=== PATIENT | female | born 1945 | race Caucasian/White ===

== ENCOUNTER → 2017-01-07 | Outpatient (CLI) | payer MEDICARE ==
--- NOTE | 2017-01-08 07:57 | MM ---
Reason for exam: screening (asymptomatic). Last mammogram was performed 2 years and 9 months ago. History: Patient is postmenopausal. Benign core biopsy of the left breast, 2001. Benign core biopsy of the left breast, 2000. Benign cyst aspiration of the left breast, May 04, 1998. Physical Findings: A clinical breast exam by your physician is recommended on an annual basis and results should be correlated with mammographic findings. MG 3D Screening Mammo W/Cad Bilateral CC and MLO view(s) were taken. Prior study comparison: April 03, 2014, bilateral MG screening mammo w CAD. June 26, 2011, bilateral digital screening mammo w/CAD. There are scattered fibroglandular densities. Finding: There are typically benign vascular, round calcifications in both breasts. There is no discrete abnormality. ASSESSMENT: Benign, BI-RAD 2 RECOMMENDATION: Routine screening mammogram of both breasts in 1 year.
== END | disposition home or self-care (01) ==
LOC: RADMAMWWP 07:25
PROVIDERS: ATTEND Family Medicine
DX: Z12.31 Encounter for screening mammogram for malignant neoplasm of breast (principal)
CPT/HCPCS: 77063; G0202

== ENCOUNTER → 2021-03-20 | Outpatient (CLI) | payer MEDICARE ==
--- NOTE | 2021-03-20 08:32 | BD ---
EXAMINATION TYPE: Axial Bone Density DATE OF EXAM: 03/20/2021 COMPARISON: 05/29/2010 CLINICAL HISTORY: Height: 64.2 IN Weight: 210 LBS FRAX RISK QUESTIONS: History of Fracture in Adulthood: RT ANKLE FX AGE 61 Secondary Osteoporosis: 3. Menopause before 45: PARTIAL HYST AGE 26 RISK FACTORS HISTORY OF: Active: YES Postmenopausal woman: PARTIAL HYST AGE 26 Take estrogen and/or progesterone medications: NOT NOW How long: TOOK CONTROL FOR 15 YEARS MEDICATIONS: Thyroid Medications: YES Which medication: Synthroid How Lon+ YEARS Additional Medications: CALCIUM, VIT D, SYNTHROID, LIPITOR, EXAM MEASUREMENTS: Bone mineral densitometry was performed using the [employer] System. Bone mineral density as measured about the Lumbar spine is: ----- L1-L4(G/cm2): 1.117 T Score Values are as follows: ----- L2: -1.7 ----- L3: 0.2 ----- L4: 0.9 ----- L1-L4: -0.5 Bone mineral density has: Increased 13.8% since study of: 05/29/2010 Bone mineral density about the R hip (g/cm2): 0.819 Bone mineral density about the L hip (g/cm2): 0.879 T Score values are as follows: -----R Neck: -1.6 -----L Neck: -1.2 -----R Total: -1.3 -----L Total: -1.1 Bone mineral density has: Decreased -3.7% since study of: 05/29/2010 IMPRESSION: Osteopenia NOTE: T-SCORE=SD OF THE YOUNG ADULT MEAN.
--- NOTE | 2021-03-21 12:21 | MM ---
Reason for exam: screening (asymptomatic). Last mammogram was performed 4 years and 2 months ago. History: Patient is postmenopausal. Benign core biopsy of the left breast, 2001. Benign core biopsy of the left breast, 2000. Benign cyst aspiration of the left breast, May 04, 1998. Took hormonal contraceptives for 15 years. Physical Findings: A clinical breast exam by your physician is recommended on an annual basis and results should be correlated with mammographic findings. MG 3D Screening Mammo W/Cad Bilateral CC and MLO view(s) were taken. Prior study comparison: January 07, 2017, bilateral MG 3d screening mammo w/cad. April 03, 2014, bilateral MG screening mammo w CAD. There are scattered fibroglandular densities. Stable benign calcifications. There is no discrete abnormality. No significant changes when compared with prior studies. ASSESSMENT: Benign, BI-RAD 2 RECOMMENDATION: Routine screening mammogram of both breasts in 1 year.
== END | disposition home or self-care (01) ==
LOC: RADMAMWWP 07:00
PROVIDERS: ATTEND Family Medicine
DX: Z12.31 Encounter for screening mammogram for malignant neoplasm of breast (principal); Z78.0 Asymptomatic menopausal state; M85.80 Other specified disorders of bone density and structure, unspecified site
CPT/HCPCS: 77063; 77067; 77080

== ENCOUNTER 2022-05-29 06:07 | Inpatient (IN) | payer MEDICARE ==
[2022-05-29] MEDS ORDERED: PANTOPRAZOLE 40 MG/10 ML VIAL IVP STA (06:09)
[2022-05-29] MEDS ORDERED: SODIUM CHLORIDE 0.9% 1,000 ML IV STA (06:34)
[2022-05-29] MEDS ORDERED: ONDANSETRON 4 MG/2 ML VIAL IVP STA (06:34)
[2022-05-29] MEDS ORDERED: MORPHINE SULFATE 2 MG/ML SYRINGE IVP STA (06:59)
--- NOTE | 2022-05-29 07:11 | ED ---
Female Urogenital HPI - General Chief complaint: Urogenital Stated complaint: Urogenital, vomiting Time Seen by Provider: 05/29/22 06:09 Source: patient, family, RN notes reviewed Mode of arrival: ambulatory Limitations: no limitations - History of Present Illness Initial comments: This is a 76-year-old female who presents to the emergency department for nausea, vomiting, and urinary hesitancy. States that she woke up early this morning with pain in the right flank area with associated nausea and vomiting. Right flank pain wraps around into the abdomen. For the last couple of days, she's had burning with urination and urinary hesitancy. She's had 3 urinary tract infections since March, her most recent one was less than a month ago. Unsure which antibiotic she was treated with. Overall states that she feels very ill. Denies any history of kidney stones. Denies any fevers, chills, sore throat, cough, dyspnea, chest pain, p alpitations, diarrhea, back pain, or headaches. MD Complaint: dysuria Onset/Timin -: days(s) Location: other (right flank) Radiation: RLQ - Related Data Home Medications Medication Instructions Recorded Confirmed Atorvastatin Calcium 20 mg PO QAM 05/29/22 05/29/22 Levothyroxine Sodium [Synthroid] 50 mcg PO QAM 05/29/22 05/29/22 Meclizine [Antivert] 25 mg PO BID PRN 05/29/22 05/29/22 Allergies Allergy/AdvReac Type Severity Reaction Status Date / Time Latex, Natural Rubber Allergy Unknown Verified 05/29/22 13:08 Sulfa (Sulfonamide Allergy Unknown Verified 05/29/22 13:08 Antibiotics) sulfur Allergy Unknown Uncoded 05/29/22 06:22 Review of Systems ROS Statement: Those systems with pertinent positive or pertinent negative responses have been documented in the HPI. ROS Other: All systems not noted in ROS Statement are negative. Past Medical History Past Medical History: Hyperlipidemia, Thyroid Disorder History of Any Multi-Drug Resistant Organisms: None Reported Past Surgical History: Hysterectomy, Orthopedic Surgery Past Psychological History: No Psychological Hx Reported Smoking Status: Former smoker Past Alcohol Use History: None Reported Past Drug Use History: None Reported General Exam Limitations: no limitations General appearance: alert, in distress Head exam: Present: atraumatic, normocephalic, normal inspection Respiratory exam: Present: normal lung sounds bilaterally. Absent: respiratory distress, wheezes, rales, rhonchi, stridor Cardiovascular Exam: Present: regular rate, normal rhythm, normal heart sounds. Absent: systolic murmur, diastolic murmur, rubs, gallop, clicks GI/Abdominal exam: Present: soft, tenderness (RLQ), normal bowel sounds. Absent: distended, guarding, rebound, rigid Neurological exam: Present: alert, oriented X3, CN II-XII intact Psychiatric exam: Present: normal affect, normal mood Skin exam: Present: warm, dry, intact, normal color. Absent: rash Course Vital Signs 05/29/22 05/29/22 05/29/22 06:23 06:36 13:23 Temperature 97.8 F 98.2 F Pulse Rate 79 79 67 Respiratory 16 18 18 Rate Blood Pressure 151/82 169/79 151/73 O2 Sat by Pulse 96 96 97 Oximetry Medical Decision Making - Medical Decision Making This is a 76-year-old female who presents to the emergency department with nausea, vomiting, and right flank pain. Lab work reveals leukocytosis. Urinalysis is possibly suggestive of an infection but also consistent with contamination. Computed tomography scan of the abdomen and pelvis obtained revealing an 18 mm calculus in the right renal pelvis with moderate sized hydronephrosis. There is an additional proximal moderate hydroureter and a 5 mm calculus in the distal right ureter before the UVJ. She was given normal saline, Toradol, morphine, and Zofran. She only had symptomatic improvement for 30 minutes to 1 hour. She subsequently required a dose of Dilaudid followed by Reglan. Patient's pain improved slightly, however she is still very uncomfortable. Overall states that she feels very ill and is not comfortable going home due to her level of pain and inability to urinate. Dr. Hunt, urology, is agreeable to the admission and managing the patient on an inpatient basis. Patient will be admitted to medicine with urology consult for further management. This case was discussed in detail with the attending ED physician. Presentation, findings, and treatment plan discussed in detail as well. - Lab Data Result diagrams: 05/29/22 07:11 05/29/22 07:11 Lab Results 05/29/22 05/29/22 05/29/22 Range/Units 07:11 07:11 07:11 WBC 10.8 H (3.8-10.6) k/uL RBC 4.52 (3.80-5.40) m/uL Hgb 13.8 (11.4-16.0) gm/dL Hct 40.8 (34.0-46.0) % MCV 90.4 (80.0-100.0) fL MCH 30.5 (25.0-35.0) pg MCHC 33.7 (31.0-37.0) g/dL RDW 13.0 (11.5-15.5) % Plt Count 273 (150-450) k/uL MPV 7.9 Neutrophils % 79 % Lymphocytes % 14 % Monocytes % 5 % Eosinophils % 1 % Basophils % 0 % Neutrophils # 8.5 H (1.3-7.7) k/uL Lymphocytes # 1.5 (1.0-4.8) k/uL Monocytes # 0.5 (0-1.0) k/uL Eosinophils # 0.1 (0-0.7) k/uL Basophils # 0.0 (0-0.2) k/uL Sodium 136 L (137-145) mmol/L Potassium 4.2 (3.5-5.1) mmol/L Chloride 105 (98-107) mmol/L Carbon Dioxide 20 L (22-30) mmol/L Anion Gap 11 mmol/L BUN 12 (7-17) mg/dL Creatinine 0.80 (0.52-1.04) mg/dL Est GFR (CKD-EPI)AfAm 83 (>60 ml/min/1.73 sqM) Est GFR (CKD-EPI)NonAf 72 (>60 ml/min/1.73 sqM) Glucose 135 H (74-99) mg/dL Calcium 8.9 (8.4-10.2) mg/dL Total Bilirubin 0.6 (0.2-1.3) mg/dL AST 24 (14-36) U/L ALT 19 (4-34) U/L Alkaline Phosphatase 107 (38-126) U/L Total Protein 6.9 (6.3-8.2) g/dL Albumin 4.1 (3.5-5.0) g/dL Amylase 67 (30-110) U/L Lipase 100 (23-300) U/L Urine Color Yellow Urine Appearance Turbid H (Clear) Urine pH 5.0 (5.0-8.0) Ur Specific [place] 1.025 (1.001-1.035) Urine Protein 1+ H (Negative) Urine Glucose (UA) Negative (Negative) Urine Ketones Negative (Negative) Urine Blood Negative (Negative) Urine Nitrite Negative (Negative) Urine Bilirubin Negative (Negative) Urine Urobilinogen <2.0 (<2.0) mg/dL Ur Leukocyte Esterase Large H (Negative) Ur Squamous Epith Cells 18 H (0-4) /hpf Calcium Oxalate Crystal Many H (None) /hpf Urine Bacteria Occasional H (None) /hpf Urine Mucus Many H (None) /hpf - Radiology Data Radiology results: report reviewed, image reviewed Disposition Clinical Impression: Hydronephrosis with renal and ureteral calculus obstruction Disposition: ADMITTED IP TO THIS HOSP
[2022-05-29 07:24] LABS: Basophils % (A) 0 %; Eosinophils # (A) 0.1 k/uL (0-0.7); Eosinophils % (A) 1 %; HCT 40.8 % (34.0-46.0); HGB 13.8 gm/dL (11.4-16.0); Lymphocytes # (A) 1.5 k/uL (1.0-4.8); Lymphocytes % (A) 14 %; MCH 30.5 pg (25.0-35.0); MCHC 33.7 g/dL (31.0-37.0); MCV 90.4 fL (80.0-100.0); Mean Platelet Volume 7.9; Monocytes # (A) 0.5 k/uL (0-1.0); Monocytes % (A) 5 %; Neutrophils # (A) 8.5 k/uL (1.3-7.7); Neutrophils % (A) 79 %; Platelet Count 273 k/uL (150-450); RBC 4.52 m/uL (3.80-5.40); WBC 10.8 k/uL (3.8-10.6)
[2022-05-29 07:38] LABS: Albumin 4.1 g/dL (3.5-5.0); Calcium 8.9 mg/dL (8.4-10.2); Potassium 4.2 mmol/L (3.5-5.1); Total Bilirubin 0.6 mg/dL (0.2-1.3); Total Protein 6.9 g/dL (6.3-8.2)
--- NOTE | 2022-05-29 07:49 | CT ---
EXAMINATION TYPE: CT abdomen pelvis wo con DATE OF EXAM: 05/29/2022 HISTORY: Rt flank pain, frequent UTIs, vomiting CT DLP: 1042.4 mGycm. Automated Exposure Control for Dose Reduction was Utilized. TECHNIQUE: CT scan of the abdomen and pelvis is performed without oral or IV contrast. COMPARISON: NONE FINDINGS: Within the limitations of a non-contrast study, the following observations are made. LUNG BASES: Elevated right hemidiaphragm. Coronary artery calcification is present. LIVER/GB: No significant abnormality is appreciated. PANCREAS: No significant abnormality is seen. SPLEEN: No significant abnormality is seen. ADRENALS: No significant abnormality is seen. KIDNEYS: No left-sided nephrolithiasis or hydronephrosis. Moderate right-sided hydronephrosis with 18 mm calculus in right renal pelvis on coronal image 56. There is additional proximal moderate hydrour eter with horizontal course proximal to mid segment than mild to moderate mid to distal hydroureter d ue to obstructing 5 mm calculus just before right UVJ axial image 146. No intraluminal calculi in the poorly distended bladder. BOWEL: Small to moderate size hiatal hernia. Normal-appearing appendix from base of cecum. No suspici ous small or large bowel dilatation. GENITAL ORGANS: Uterus surgically absent or markedly atrophic. Occasional scattered tiny pelvic phleb olith is seen bilaterally. LYMPH NODES: No greater than 1cm abdominal or pelvic lymph nodes are appreciated. OSSEOUS STRUCTURES: Slight scoliotic curvature in the spine. Multilevel facet arthropathy in the mid to lower lumbar spine. OTHER: No significant additional abnormality is seen. IMPRESSION: There is 5 mm calculus distal right ureter right before UVJ causing [id number] righ t-sided hydronephrosis. Note is made of additional 18 mm calculus in the right renal pelvis.
[2022-05-29 08:23] LABS: Appearance,Urine Turbid (Clear); Bacteria,Urine Occasional /hpf; Bilirubin,Urine Negative (Negative); Blood,Urine Negative (Negative); Calcium Oxalate Crystals,Urine Many /hpf; Color,Urine Yellow; Glucose,Urine (UA) Negative (Negative); Ketones,Urine Negative (Negative); Leukocyte Esterase,Urine Large (Negative); Mucus,Urine Many /hpf; Nitrite,Urine Negative (Negative); Protein,Urine 1+ (Negative); Specific Gravity,Urine 1.025 (1.001-1.035); Squamous Epithelial Cell,Urine 18 /hpf (0-4); Urobilinogen,Urine <2.0 mg/dL (<2.0)
[2022-05-29] MEDS ORDERED: METOCLOPRAMIDE 5 MG/ML 2 ML VIAL IVP STA (08:47)
[2022-05-29] MEDS ORDERED: HYDROmorphone 0.5 MG/0.5 ML SYRINGE IVP STA ×2 (08:47→10:04)
[2022-05-29] MEDS ORDERED: NALOXONE 0.4 MG/ML 1 ML VIAL IV PRN (13:19)
[2022-05-29] MEDS ORDERED: HYDROmorphone 1 MG/ML 1 ML SYRINGE IVP PRN (13:19)
[2022-05-29] MEDS ORDERED: KETOROLAC 15 MG/ML 1 ML VIAL IVP PRN (13:19)
[2022-05-29] MEDS ORDERED: ACETAMINOPHEN TAB 325 MG TAB PO PRN (13:19)
[2022-05-29] MEDS ORDERED: SODIUM CHLORIDE 0.9% 1,000 ML IV SCH (13:30)
--- NOTE | 2022-05-29 15:14 | P.GSCN ---
History of Present Illness Consult date: 05/29/22 Reason for Consult: Renal and ureteral calculus with hydronephrosis and hydroureter Requesting physician: Lizbeth Williamson History of present illness: This is a 76-year-old female who presents to the emergency department for nausea, vomiting, and urinary hesitancy. States that she woke up early this morning with pain in the right flank area with associated nausea and vomiting. Right flank pain wraps around into the abdomen. For the last couple of days, she's had burning with urination and urinary hesitancy. She's had 3 urinary tract infections since March, her most recent one was less than a month ago. Unsure which antibiotic she was treated with. Overall states that she feels very ill. Denies any history of kidney stones. Abdomen/pelvis CT show 5mm calculus to distal right ureter right before the UVVJ causing moderate right sided hydronephrosis. An additional 18mm calculus is seen in the right renal pelvis. Review of Systems - Constitutional Denies chills, Denies fever - Cardiovascular Denies chest pain - Respiratory Denies cough - Gastrointestinal Reports nausea, Reports vomiting - Genitourinary Genitourinary: Reports dysuria, Reports flank pain, Reports urinary frequency, Denies hematuria Past Medical History Past Medical History: Hyperlipidemia, Thyroid Disorder History of Any Multi-Drug Resistant Organisms: None Reported Past Surgical History: Hysterectomy, Orthopedic Surgery Past Psychological History: No Psychological Hx Reported Smoking Status: Former smoker Past Alcohol Use History: None Reported Past Drug Use History: None Reported Medications and Allergies Home Medications Medication Instructions Recorded Confirmed Type Atorvastatin Calcium 20 mg PO QAM 05/29/22 05/29/22 History Levothyroxine Sodium [Synthroid] 50 mcg PO QAM 05/29/22 05/29/22 History Meclizine [Antivert] 25 mg PO BID PRN 05/29/22 05/29/22 History Allergies Allergy/AdvReac Type Severity Reaction Status Date / Time Latex, Natural Rubber Allergy Unknown Verified 05/29/22 13:08 Sulfa (Sulfonamide Allergy Unknown Verified 05/29/22 13:08 Antibiotics) sulfur Allergy Unknown Uncoded 05/29/22 06:22 Surgical - Exam Vital Signs Temp Pulse Resp BP Pulse Ox 97.8 F 79 16 151/82 96 05/29/22 06:23 05/29/22 06:23 05/29/22 06:23 05/29/22 06:23 05/29/22 06:23 - General well developed, well nourished, moderate pain - Respiratory normal expansion, normal respiratory effort - Abdomen Abdomen: soft, non tender - Integumentary no rash - Psychiatric oriented to time, oriented to person, oriented to place, speech is normal Results - Labs 05/30/22 06:44 05/30/22 06:44 Abnormal Lab Results - Last 24 Hours (Table) 05/29/22 05/29/22 05/29/22 Range/Units 07:11 07:11 07:11 WBC 10.8 H (3.8-10.6) k/uL Neutrophils # 8.5 H (1.3-7.7) k/uL Sodium 136 L (137-145) mmol/L Carbon Dioxide 20 L (22-30) mmol/L Glucose 135 H (74-99) mg/dL Urine Appearance Turbid H (Clear) Urine Protein 1+ H (Negative) Ur Leukocyte Esterase Large H (Negative) Ur Squamous Epith Cells 18 H (0-4) /hpf Calcium Oxalate Crystal Many H (None) /hpf Urine Bacteria Occasional H (None) /hpf Urine Mucus Many H (None) /hpf Diabetes panel 05/29/22 Range/Units 07:11 Sodium 136 L (137-145) mmol/L Potassium 4.2 (3.5-5.1) mmol/L Chloride 105 (98-107) mmol/L Carbon Dioxide 20 L (22-30) mmol/L BUN 12 (7-17) mg/dL Creatinine 0.80 (0.52-1.04) mg/dL Glucose 135 H (74-99) mg/dL Calcium 8.9 (8.4-10.2) mg/dL AST 24 (14-36) U/L ALT 19 (4-34) U/L Alkaline Phosphatase 107 (38-126) U/L Total Protein 6.9 (6.3-8.2) g/dL Albumin 4.1 (3.5-5.0) g/dL Calcium panel 05/29/22 Range/Units 07:11 Calcium 8.9 (8.4-10.2) mg/dL Albumin 4.1 (3.5-5.0) g/dL Pituitary panel 05/29/22 Range/Units 07:11 Sodium 136 L (137-145) mmol/L Potassium 4.2 (3.5-5.1) mmol/L Chloride 105 (98-107) mmol/L Carbon Dioxide 20 L (22-30) mmol/L BUN 12 (7-17) mg/dL Creatinine 0.80 (0.52-1.04) mg/dL Glucose 135 H (74-99) mg/dL Calcium 8.9 (8.4-10.2) mg/dL Adrenal panel 05/29/22 Range/Units 07:11 Sodium 136 L (137-145) mmol/L Potassium 4.2 (3.5-5.1) mmol/L Chloride 105 (98-107) mmol/L Carbon Dioxide 20 L (22-30) mmol/L BUN 12 (7-17) mg/dL Creatinine 0.80 (0.52-1.04) mg/dL Glucose 135 H (74-99) mg/dL Calcium 8.9 (8.4-10.2) mg/dL Total Bilirubin 0.6 (0.2-1.3) mg/dL AST 24 (14-36) U/L ALT 19 (4-34) U/L Alkaline Phosphatase 107 (38-126) U/L Total Protein 6.9 (6.3-8.2) g/dL Albumin 4.1 (3.5-5.0) g/dL - Imaging CT scan - abdomen: report reviewed CT scan - pelvis: report reviewed Assessment and Plan Assessment: The patient is in moderate discomfort. Patient has right flank pain that radiates to her abdomen. No left flank pain. She states she feels as if she is unable to empty her bladder. RN stated she bladder scanned patient for 72ml. No burning with urination. Denies any hematuria. WBC 10.8, patient afebrile. + UA could be contamination. (1) Hydronephrosis with renal and ureteral calculus obstruction Current Visit: Yes Status: Acute Code(s): N13.2 - HYDRONEPHROSIS WITH RENAL AND URETERAL CALCULOUS OBSTRUCTION SNOMED Code(s): 656991455 Plan: - Pain management with Dilaudid and Toradol - Manage nausea with Zofran or Reglan - Hydrate patient with IVF - Clear liquid diet - Urine culture - Cipro - Will need PCNL at later date Impression and plan of care have been directed as dictated by the signing physician. Maya Menard nurse practitioner acting as scribe for signing physician. Maya Menard [facility] Palliative Care/Urology Spectralink [id number] Email: [email or web address] This patient has been examined and the x-rays reviewed by myself. The patient has a distal ureteral stone on the right that is probably causing the pain as well as a large stone right in the renal pelvis. Options of treatment have been discussed. We will plan with a right ureteroscopy and laser lithotripsy primarily to the distal stone and then eventually a percutaneous nephrostolithotomy to the proximal stone Time with Patient: Greater than 30
[2022-05-29] MEDS: METOCLOPRAMIDE 5 MG/ML 2 ML VIAL IVP SCH (17:03)
[2022-05-29] MEDS: ONDANSETRON 4 MG/2 ML VIAL IVP PRN (18:02)
[2022-05-29] MEDS: DEXTROSE 5%-0.9% NACL 1,000 ML IV SCH (18:11)
[2022-05-29] MEDS: CIPROFLOXACIN HCL 500 MG TAB PO SCH (21:27)
[2022-05-29] MEDS: HYDROmorphone 0.5 MG/0.5 ML SYRINGE IVP PRN (21:27)
[2022-05-30] MEDS: METOCLOPRAMIDE 5 MG/ML 2 ML VIAL IVP SCH ×4 (01:00→18:35)
[2022-05-30] MEDS: ONDANSETRON 4 MG/2 ML VIAL IVP PRN ×4 (01:00→22:29)
[2022-05-30] MEDS: LEVOTHYROXINE 50 MCG TAB PO SCH (06:33)
[2022-05-30] MEDS: HYDROmorphone 0.5 MG/0.5 ML SYRINGE IVP PRN (06:34)
[2022-05-30 07:00] LABS: Basophils % (A) 0 %; Eosinophils # (A) 0.2 k/uL (0-0.7); Eosinophils % (A) 2 %; HCT 35.2 % (34.0-46.0); HGB 11.8 gm/dL (11.4-16.0); Lymphocytes # (A) 1.8 k/uL (1.0-4.8); Lymphocytes % (A) 27 %; MCH 31.2 pg (25.0-35.0); MCHC 33.6 g/dL (31.0-37.0); Mean Platelet Volume 7.3; Monocytes # (A) 0.6 k/uL (0-1.0); Monocytes % (A) 8 %; Neutrophils % (A) 61 %; Platelet Count 245 k/uL (150-450); RBC 3.79 m/uL (3.80-5.40); RDW 12.7 % (11.5-15.5); WBC 6.7 k/uL (3.8-10.6)
[2022-05-30 07:09] LABS: ALT 15 U/L (4-34); AST 20 U/L (14-36); African American GFR (CKD) 61 (>60 ml/min/1.73 sqM); Albumin 3.2 g/dL (3.5-5.0); Albumin/Globulin Ratio 1.3; Alkaline Phosphatase 82 U/L (38-126); Anion Gap 4 mmol/L; Blood Urea Nitrogen 14 mg/dL (7-17); Calcium 8.1 mg/dL (8.4-10.2); Carbon Dioxide 26 mmol/L (22-30); Chloride 106 mmol/L (98-107); Globulin 2.4 g/dL; Glucose 105 mg/dL (74-99); Magnesium 1.8 mg/dL (1.6-2.3); Non-African American GFR(CKD) 53 (>60 ml/min/1.73 sqM); Potassium 4.1 mmol/L (3.5-5.1); Sodium 136 mmol/L (137-145); Total Bilirubin 0.6 mg/dL (0.2-1.3); Total Protein 5.6 g/dL (6.3-8.2)
--- NOTE | 2022-05-30 07:45 | P.PN ---
Subjective Progress Note Date: 05/30/22 The patient is in the hospital with obstructing distal right ureteral stone with colic. She persisted with colic over the night. I discussed with the patient options of treatment. Because of the persistent colic on the right she wishes the stone to be removed. I will do a right ureteroscopy laser lithotripsy to the distal ureteral stone today. She may need a stent. This far as a renal pelvic stone this will be dealt with at a later date. She is on antibiotics possible infection however this is probably a contaminated urine based on the large amount of squamous epithelial cells in the urine, a normal white count and no fever. We'll proceed with this procedure today. Objective - Vital Signs Vital signs: Vital Signs Temp 98.8 F 05/30/22 01:32 Pulse 59 L 05/30/22 01:32 Resp 16 05/30/22 01:32 BP 119/57 05/30/22 01:32 Pulse Ox 95 05/30/22 01:32 FiO2 Intake & Output 05/29/22 05/30/22 05/30/22 18:59 06:59 18:59 Intake Total 400 Balance 400 Weight 99.79 kg Intake: Intake, IV Titration 400 Amount Dextrose 5%-0.9% NaCl 1, 100 000 ml @ 75 mls/hr IV . [id number] [facility] Rx#:[id number] Sodium Chloride 0.9% 1, 300 000 ml @ 75 mls/hr IV . [id number] [facility] Rx#:[id number] Other: Voiding Method Toilet # Voids 1 - Labs CBC & Chem 7: 05/30/22 06:44 05/30/22 06:44 Labs: Abnormal Lab Results - Last 24 Hours (Table) 05/29/22 05/30/22 05/30/22 Range/Units 07:11 06:44 06:44 RBC 3.79 L (3.80-5.40) m/uL Sodium 136 L (137-145) mmol/L Glucose 105 H (74-99) mg/dL Calcium 8.1 L (8.4-10.2) mg/dL Total Protein 5.6 L (6.3-8.2) g/dL Albumin 3.2 L (3.5-5.0) g/dL Urine Appearance Turbid H (Clear) Urine Protein 1+ H (Negative) Ur Leukocyte Esterase Large H (Negative) Ur Squamous Epith Cells 18 H (0-4) /hpf Calcium Oxalate Crystal Many H (None) /hpf Urine Bacteria Occasional H (None) /hpf Urine Mucus Many H (None) /hpf Microbiology - Last 24 Hours (Table) 05/29/22 19:45 Urine Culture - Preliminary Urine,Clean Catch Assessment and Plan (1) Hydronephrosis with renal and ureteral calculus obstruction Current Visit: Yes Status: Acute Code(s): N13.2 - HYDRONEPHROSIS WITH RENAL AND URETERAL CALCULOUS OBSTRUCTION SNOMED Code(s): 665633391
[2022-05-30] MEDS: DEXTROSE 5%-0.9% NACL 1,000 ML IV SCH ×2 (07:51→18:28)
[2022-05-30] MEDS: CIPROFLOXACIN HCL 500 MG TAB PO SCH ×3 (09:44→22:29)
[2022-05-30] MEDS: ATORVASTATIN 20 MG TAB PO SCH ×2 (09:44→09:47)
[2022-05-30] MEDS: PANTOPRAZOLE 40 MG/10 ML VIAL IVP SCH (11:49)
--- NOTE | 2022-05-30 12:13 | P.HPIM ---
History of Present Illness H&P Date: 05/30/22 Chief Complaint: Right flank pain, nausea vomiting History and Physical and Discharge Summary : This is a pleasant 76-year-old female with past medical history of hyperlipidemia, hypothyroidism, former nicotine dependence, obesity presented to the ER with complaints of right flank pain, urinary dysuria, nausea vomiting worsening over the last 2 days. Denies prior history of kidney stones. Reports recurrent UTIs since March most recent one last month, treated with antibiotics outpatient. CT of abdomen and pelvis reported 5 mm calculus of the distal right ureter right before the UVJ causing mild to moderate right-sided hydronephrosis, additional 18 mm calculus in the right renal pelvis. UA reported occasional bacteria, many calcium oxalate crystals, 18 squamous epithelial cells, large leukocyte esterase, negative nitrates .Afebrile, and ABC 10.8 on admission, currently within normal limits. Maintained on antiemetics, IV fluid hydration,Cipro and pain management. Review of Systems ROS Statement: Those systems with pertinent positive or pertinent negative responses have been documented in the HPI. ROS Other: All systems not noted in ROS Statement are negative. Past Medical History Past Medical History: Hyperlipidemia, Thyroid Disorder History of Any Multi-Drug Resistant Organisms: None Reported Past Surgical History: Hysterectomy, Orthopedic Surgery Past Psychological History: No Psychological Hx Reported Smoking Status: Former smoker Past Alcohol Use History: None Reported Past Drug Use History: None Reported - Past Family History Mother History Unknown: Yes Medications and Allergies Home Medications Medication Instructions Recorded Confirmed Type Atorvastatin Calcium 20 mg PO QAM 05/29/22 05/29/22 History Levothyroxine Sodium [Synthroid] 50 mcg PO QAM 05/29/22 05/29/22 History Meclizine [Antivert] 25 mg PO BID PRN 05/29/22 05/29/22 History Allergies Allergy/AdvReac Type Severity Reaction Status Date / Time Latex, Natural Rubber Allergy Unknown Verified 05/29/22 13:08 Sulfa (Sulfonamide Allergy Unknown Verified 05/29/22 13:08 Antibiotics) sulfur Allergy Unknown Uncoded 05/29/22 06:22 Physical Exam Vitals: Vital Signs Temp Pulse Pulse Resp BP BP Pulse Ox 05/30/22 08:27 98.2 F 64 16 125/74 94 L 05/30/22 01:32 98.8 F 59 L 16 119/57 95 05/29/22 18:40 66 18 05/29/22 16:22 98.1 F 66 18 148/75 95 05/29/22 16:07 97.2 F L 62 18 151/73 98 05/29/22 13:23 67 18 151/73 97 Intake and Output 05/29/22 05/30/22 05/30/22 22:59 06:59 14:59 Intake Total 400 Balance 400 Intake: Intake, IV Titration 400 Amount Dextrose 5%-0.9% NaCl 1, 100 000 ml @ 75 mls/hr IV . [id number] DAVE Rx#:[id number] Sodium Chloride 0.9% 1, 300 000 ml @ 75 mls/hr IV . [id number] DAVE Rx#:[id number] Other: Voiding Method Toilet Toilet # Voids 1 3 Weight 99.79 kg PHYSICAL EXAM: VITAL SIGNS: [As above] GENERAL: Sitting up in bed, no acute distress HEENT: Conjunctivae normal. eyes normal. NECK: No JVD. No thyroid enlargement. No LNs CARDIOVASCULAR: S1, S2 regular.. No murmur RESPIRATION: Breath sounds diminished in the bases. No rhonchi or crackles. No bronchial breathing. ABDOMEN: Soft, right flank tenderness, No guarding. no masses palpable. Bowel sounds heard. LEGS: No edema. no swelling PSYCHIATRY: Alert and oriented X3, mood and affect normal. NERVOUS SYSTEM: Cranial N 2-12 grossly normal. No focal deficits. Strength and sensation grossly intact. Skin: Warm and dry,, no rash Results CBC & Chem 7: 05/30/22 06:44 05/30/22 06:44 Labs: Abnormal Lab Results - Last 24 Hours (Table) 05/30/22 05/30/22 Range/Units 06:44 06:44 RBC 3.79 L (3.80-5.40) m/uL Sodium 136 L (137-145) mmol/L Glucose 105 H (74-99) mg/dL Calcium 8.1 L (8.4-10.2) mg/dL Total Protein 5.6 L (6.3-8.2) g/dL Albumin 3.2 L (3.5-5.0) g/dL Microbiology - Last 24 Hours (Table) 05/29/22 19:45 Urine Culture - Preliminary Urine,Clean Catch Thrombosis Risk Factor Assmnt - Choose All That Apply Any of the Below Risk Factors Present?: Yes Each Factor Represents 1 point: Obesity (BMI >25) Other Risk Factors: Yes Each Risk Factor Represents 3 Points: Age 75 years or older Thrombosis Risk Factor Assessment Total Risk Factor Score: 4 Thrombosis Risk Factor Assessment Level: Moderate Risk Assessment and Plan Assessment: Right ureteral calculus obstruction with a right-sided hydronephrosis Right renal pelvis, 18 mm calculus Obesity, BMI 35.5 Hyperlipidemia Hypothyroidism Former nicotine dependence Plan: Continue on current medication regime ,monitoring and symptomatic treatment. Antiemetics and pain management. IV fluid hydration. Antibiotics in place as per urology. Right ureteroscopy lithotripsy to the distal ureteral stone today with potential stent placement /PCNL at later date as per urology. Patient may be discharged home later today in stable condition with guarded prognosis, after urology procedure, pending final DC recommendations as antibiotics and clearance per urology. Discharge Medication List Atorvastatin Calcium 20 mg PO QAM 05/29/22 [History] Levothyroxine Sodium [Synthroid] 50 mcg PO QAM 05/29/22 [History] Meclizine [Antivert] 25 mg PO BID PRN 05/29/22 [History] The impression and plan of care has been dictated as directed. : I performed a history and examination of this patient, discussed the same with the dictator. I agree with the dictator's note ,documented as a scribe. Any additional findings or plans will be noted.
[2022-05-30] MEDS ORDERED: IV FLUID CONTINUATION 1,000 ML IV ONE (15:49)
[2022-05-30] MEDS ORDERED: MIDAZOLAM 2 MG/2 ML VIAL IV ONE (16:22)
[2022-05-30] MEDS ORDERED: LIDOCAINE 2% INJ 20 MG/ML (2 ML VIAL) ONE (16:48)
[2022-05-30] MEDS ORDERED: SUCCINYLCHOLINE CHLORIDE 200 MG/10 ML VIAL IV ONE (16:48)
[2022-05-30] MEDS ORDERED: fentaNYL (PF) 50 MCG/ML 2 ML AMP ONE (16:48)
[2022-05-30] MEDS ORDERED: PROPOFOL 10 MG/ML 20 ML VIAL IV ONE (16:48)
[2022-05-30] MEDS ORDERED: LACTATED RINGERS 1,000 ML IV ONE (17:02)
--- NOTE | 2022-05-30 17:30 | P.OP ---
Date of Procedure: 05/30/22 Preoperative Diagnosis: Right renal and ureteral stone Postoperative Diagnosis: Same Procedure(s) Performed: Cystoscopy, right ureteroscopy with laser lithotripsy, placement of 6 x 24 stent Anesthesia: JOSH Surgeon: Haris Hunt Estimated Blood Loss (ml): 0 Pathology: other (Stone) Condition: stable Disposition: PACU Indications for Procedure: Patient is 76. She is admitted with an 18 mm UPJ stone and a 4-5 mm distal ureteral stone. Ureteral stone as what caused obstruction and pain. She comes for right ureteroscopy and laser lithotripsy Description of Procedure: Patient brought to the operative suite. Given general anesthesia. Placed in lithotomy position with sterile prep and drape. Cystoscopy identifies a cystocele. Urethra is normal. The bladder mucosa is unremarkable. The right ureteral orifice is edematous the left is normal. I passed the semirigid ureteroscope to the right ureteral orifice and passed an 035 wire up the ureter. I then pass a semirigid scope over the wire to the right ureteral stone. Through a separate port a tendon 75 probe was placed and the stone broken into tiny fragments. There flushed out of the ureter. Because of the 18 mm UPJ stone a double-J catheter was replaced. I removed the ureteroscope. Over the wire is then passed a 6 x 24 double-J catheter that coils in the right renal pelvis and in the bladder. The bladder strain the patient is awakened and returned recovery room good condition. She'll be returned to her room and discharged home the next 24 hours. She'll follow-up in the office in one week. She'll need a percutaneous nephrostolithotomy for the large right renal pelvic stone.
--- NOTE | 2022-05-30 17:44 | FL ---
Intraoperative/procedural fluoroscopic services were provided. Total fluoroscopy time is 6 seconds wi th a total of 1 submitted images to PACS. Please see the operative/procedural note for further detail s.
[2022-05-31] MEDS: METOCLOPRAMIDE 5 MG/ML 2 ML VIAL IVP SCH ×2 (00:25→09:29)
[2022-05-31] MEDS: LEVOTHYROXINE 50 MCG TAB PO SCH (09:29)
[2022-05-31 09:40] VITALS: BP 123/63; PULSE 56; RESP 18; TEMP 98.5
--- NOTE | 2022-05-31 09:43 | P.PN ---
Subjective Progress Note Date: 05/31/22 the patient underwent right ureteroscopy with laser lithotripsy yesterday. I also placed a stent. I removed the distal ureteral stone that she has an 18 mm UPJ stone that will need to be dealt with with a percutaneous nephrostolithotomy and a secondary sitting. This is been discussed with the patient. From urologic standpoint she can be discharged home. Objective - Vital Signs Vital signs: Vital Signs Temp 98.5 F 05/31/22 08:00 Pulse 56 L 05/31/22 08:00 Resp 18 05/31/22 08:00 BP 123/63 05/31/22 08:00 Pulse Ox 93 L 05/31/22 08:00 FiO2 Intake & Output 05/30/22 05/31/22 05/31/22 18:59 06:59 18:59 Intake Total 400 Output Total 150 Balance 250 Weight 99.79 kg Intake: IV 400 Output: Urine 150 Estimated Blood Loss 0 Other: Voiding Method Toilet Toilet # Voids 3 - Labs CBC & Chem 7: 05/30/22 06:44 05/30/22 06:44 Labs: Microbiology - Last 24 Hours (Table) 05/29/22 19:45 Urine Culture - Final Urine,Clean Catch Assessment and Plan (1) Hydronephrosis with renal and ureteral calculus obstruction Current Visit: Yes Status: Acute Code(s): N13.2 - HYDRONEPHROSIS WITH RENAL AND URETERAL CALCULOUS OBSTRUCTION SNOMED Code(s): 509500194
[2022-05-31] MEDS: DEXTROSE 5%-0.9% NACL 1,000 ML IV SCH (09:47)
[2022-05-31] MEDS: CIPROFLOXACIN HCL 500 MG TAB PO SCH (09:48)
[2022-05-31] MEDS: ATORVASTATIN 20 MG TAB PO SCH (09:48)
[2022-05-31] MEDS: PANTOPRAZOLE 40 MG/10 ML VIAL IVP SCH (09:48)
--- NOTE | 2022-05-31 11:58 | P.DS ---
Providers Date of admission: 05/29/22 13:19 Expected date of discharge: 05/31/22 Attending physician: Balaji Barillas Consults: 05/29/22 13:19 Consult Physician Urgent Consulting Provider: Haris Hunt Consult Reason/Comments: Renal and ureteral calculus with hydronephrosis and hydroureter Do you want consulting provider notified?: Already Contacted Primary care physician: Balaji Barillas [place] [facility] Course: This is a pleasant 76-year-old female with past medical history of hyperlipidemia, hypothyroidism, former nicotine dependence, obesity presented to the ER with complaints of right flank pain, urinary dysuria, nausea vomiting worsening over the last 2 days. Denies prior history of kidney stones. Reports recurrent UTIs since March most recent one last month, treated with antibiotics outpatient. CT of abdomen and pelvis reported 5 mm calculus of the distal right ureter right before the UVJ causing mild to moderate right-sided hydronephrosis, additional 18 mm calculus in the right renal pelvis. UA reported occasional bacteria, many calcium oxalate crystals, 18 squamous epithelial cells, large leukocyte esterase, negative nitrates .Afebrile, and ABC 10.8 on admission, currently within normal limits. Maintained on antiemetics, IV fluid hydration,Cipro and pain management. 05/31/2022: patient underwent right ureteroscopy with laser lithotripsy yesterda y with urology. she is feeling much better. thery have cleared her and she will f/u with them regarding remaining stone in the office. Patient Condition at Discharge: Fair Plan - Discharge Summary Discharge Rx Participant: No New Discharge Prescriptions: Continue Levothyroxine Sodium [Synthroid] 50 mcg PO QAM Atorvastatin Calcium 20 mg PO QAM Meclizine [Antivert] 25 mg PO BID PRN PRN Reason: Vertigo Discharge Medication List Atorvastatin Calcium 20 mg PO QAM 05/29/22 [History] Levothyroxine Sodium [Synthroid] 50 mcg PO QAM 05/29/22 [History] Meclizine [Antivert] 25 mg PO BID PRN 05/29/22 [History] Follow up Appointment(s)/Referral(s): Blaaji Barillas MD [Primary Care Provider] - 3 Days Haris Hunt MD [STAFF PHYSICIAN] - 1 Week Patient Instructions/Handouts: Ureteral Stones (DC), Ureteral Stent Placement (DC)
== END 2022-05-31 10:20 | disposition home or self-care (01) | DRG 661 ==
LOC: EC 06:07 → 4SSUR 13:19
PROVIDERS: ADMIT Family Medicine; ATTEND Family Medicine
PROC: 0T768DZ Dilation of Right Ureter with Intraluminal Device, Via Natural or Artificial Opening Endoscopic (ICD-10-PCS; principal; 2022-05-30 10:40)
PROC: 0TC68ZZ Extirpation of Matter from Right Ureter, Via Natural or Artificial Opening Endoscopic (ICD-10-PCS; 2022-05-30 10:40)
PROC: 0T9B30Z Drainage of Bladder with Drainage Device, Percutaneous Approach (ICD-10-PCS; 2022-05-30 10:40)
DX: N13.2 Hydronephrosis with renal and ureteral calculous obstruction (principal); D72.829 Elevated white blood cell count, unspecified; E03.9 Hypothyroidism, unspecified; E66.9 Obesity, unspecified; E78.5 Hyperlipidemia, unspecified; Z68.35 Body mass index [BMI] 35.0-35.9, adult; Z79.890 Hormone replacement therapy; Z87.440 Personal history of urinary (tract) infections; Z87.891 Personal history of nicotine dependence; Z90.710 Acquired absence of both cervix and uterus; Z88.2 Allergy status to sulfonamides; Z91.040 Latex allergy status; Z91.048 Other nonmedicinal substance allergy status
CPT/HCPCS: 36415; 74176; 80053; 81001; 82150; 82365; 83690; 83735; 85025; 87086; 96361; 96374; 96375; 96376; 99284

== ENCOUNTER → 2022-06-16 | Outpatient (CLI) | payer MEDICARE ==
[2022-06-16 18:55] LABS: African American GFR (CKD) 77.4 (60.0-200.0); Anion Gap 8.8 mmol/L (10.00-18.00); BUN/Creat Ratio 14.47 Ratio (12.00-20.00); Blood Urea Nitrogen 12.2 mg/dL (9.0-27.0); Calcium 9.7 mg/dL (8.7-10.3); Carbon Dioxide 29.6 mmol/L (20.0-27.5); Non-African American GFR(CKD) 66.8 (60.0-200.0); Potassium 4.5 mmol/L (3.5-5.5)
[2022-06-16 18:56] LABS: Basophils # (A) 0.05 X 10*3/uL (0.00-0.10); Basophils % (A) 0.8 %; Eosinophils # (A) 0.16 X 10*3/uL (0.04-0.35); Eosinophils % (A) 2.4 %; HCT 41.7 % (37.2-46.3); HGB 13.3 g/dL (12.0-15.0); Immature Grans, Automated 0.3 %; Lymphocytes # (A) 1.94 X 10*3/uL (0.90-5.00); Lymphocytes % (A) 29.3 %; MCH 28.8 pg (27.0-32.0); MCHC 31.9 g/dL (32.0-37.0); MCV 90.3 fL (80.0-97.0); Mean Platelet Volume 9.3 fL (9.5-12.2); Monocytes # (A) 0.71 X 10*3/uL (0.20-1.00); Monocytes % (A) 10.7 %; NRBC Per 100 WBC 0 /100 WBCS (0.0-0.0); Neutrophils # (A) 3.74 X 10*3/uL (1.80-7.70); Neutrophils % (A) 56.5 %; Platelet Count 398 X 10*3/uL (140-440); RBC 4.62 X 10*6/uL (4.10-5.20); RDW 13.2 % (11.5-14.5); WBC 6.62 X 10*3/uL (4.50-10.00)
[2022-06-16 19:09] LABS: Appearance,Urine Clear (Clear); Bilirubin,Urine Negative (Negative); Blood,Urine Large (Negative); Color,Urine Yellow (Yellow); Ketones,Urine Negative (Negative); Nitrite,Urine Positive (Negative); Specific Gravity,Urine 1.009 (1.001-1.030); Urobilinogen,Urine 0.2 (0.2,1.0)
[2022-06-16 20:18] LABS: Bacteria,Urine Trace /HPF (None Seen)
== END | disposition home or self-care (01) ==
LOC: LABPAT 11:45
PROVIDERS: ATTEND Urology
DX: Z01.812 Encounter for preprocedural laboratory examination (principal); N20.0 Calculus of kidney; R31.29 Other microscopic hematuria
CPT/HCPCS: 80048; 81001; 85025; 87086

== ENCOUNTER 2022-06-26 08:41 | Day surgery (SDC) | payer MEDICARE ==
[~2022-06-26 08:41] MED LIST: AMPICILLIN 1,000 MG in SODIUM CHLORIDE 0.9% 50 ML IVPB PRN; GENTAMICIN 110 MG in SODIUM CHLORIDE 0.9% 100 ML IVPB PRN
--- NOTE | 2022-06-26 09:22 | XR ---
EXAMINATION TYPE: XR KUB DATE OF EXAM: 06/26/2022 Comparison: Correlation CT 05/30/2022 Clinical History: 77-year-old female preoperative exam, N20.0 Right renal stone Findings: Right-sided ureteral stent is present. There is a 2.1 cm stone at the right kidney. Multiple pelvic p hleboliths are present. Mild degenerative spurring of both hips. Nonobstructive bowel gas pattern. Impression: A 2.1 cm right renal calculus. This appears to be within the collecting system on the patient's recen t CT. Right ureteral stent in place. Pelvic phleboliths.
[2022-06-26] MEDS ORDERED: LACTATED RINGERS 1,000 ML IV ONE ×2 (09:24→11:47)
[2022-06-26] MEDS ORDERED: ONDANSETRON 4 MG/2 ML VIAL ONE (09:47)
[2022-06-26] MEDS ORDERED: DEXAMETHASONE SOD PHOSPHATE 4 MG/ML 1 ML VIAL IVP ONE (09:51)
[2022-06-26] MEDS ORDERED: ONDANSETRON 4 MG/2 ML VIAL IVP ONE ×2 (09:51→10:02)
[2022-06-26] MEDS ORDERED: LIDOCAINE 1% (10MG/ML) FOR IV START INTRADERMA PRN (10:02)
[2022-06-26] MEDS ORDERED: DEXAMETHASONE SOD PHOSPHATE 4 MG/ML 1 ML VIAL IV ONE (10:02)
[2022-06-26] MEDS ORDERED: MIDAZOLAM 2 MG/2 ML VIAL IV PRN (10:02)
[2022-06-26] MEDS ORDERED: PROPOFOL 10 MG/ML 20 ML VIAL IV ONE (10:59)
[2022-06-26] MEDS ORDERED: KETOROLAC 15 MG/ML 1 ML VIAL ONE (10:59)
[2022-06-26] MEDS ORDERED: MIDAZOLAM 2 MG/2 ML VIAL ONE (10:59)
[2022-06-26] MEDS ORDERED: SUCCINYLCHOLINE CHLORIDE 200 MG/10 ML VIAL IV ONE (10:59)
[2022-06-26] MEDS ORDERED: fentaNYL (PF) 50 MCG/ML 2 ML AMP ONE (10:59)
[2022-06-26] MEDS ORDERED: LIDOCAINE 2% INJ 20 MG/ML (2 ML VIAL) ONE (10:59)
[2022-06-26] MEDS ORDERED: ROCURONIUM 10 MG/ML (5 ML VIAL) IV ONE (10:59)
[2022-06-26] MEDS ORDERED: IOPAMIDOL-300 50ML BTL MISCELLANE ONE (11:45)
[2022-06-26] MEDS ORDERED: MAG HYDROX/AL HYDROX/SIMETH 30 ML CUP PO PRN (12:44)
[2022-06-26] MEDS ORDERED: ACETAMINOPHEN TAB 325 MG TAB PO PRN (12:44)
[2022-06-26] MEDS ORDERED: NALOXONE 0.4 MG/ML 1 ML VIAL IV PRN (12:45)
[2022-06-26] MEDS ORDERED: HYDROmorphone PCA 10 MG/50 ML BAG IV PRN (12:45)
--- NOTE | 2022-06-26 12:52 | P.OP ---
Date of Procedure: 06/26/22 Preoperative Diagnosis: right renal calculus Postoperative Diagnosis: same Procedure(s) Performed: samecystoscopy, removal double-J catheter right, placement of occluding balloon catheter right), percutaneous nephrostomy (), percutaneous nephrosto lithotomy with ultrasound, placement of 20-Greenlandic reentry nephrostomy tube right Anesthesia: GETA Surgeon: Haris Hunt Estimated Blood Loss (ml): 200 Pathology: other (stone) Condition: stable Disposition: PACU Indications for Procedure: the patient is 77. She has a 18 a 19 mm renal pelvic stone. His moved to the right lower pole calyx. She comes for percutaneous nephrostolithotomy. Description of Procedure: patient brought to the operating suite. Given general anesthesia on the transport gurney. Placement frog position with a sterile prep and drape. Cystoscopy Foroblique lens and 21-Greenlandic sheath identifies chronic cystitis. The double-J catheters identified and pulled to the urethral meatus. Through the double-J catheter an 025 wires passed up into the renal pelvis. I remove the double-J catheter from the right ureter and pass up a 5-Greenlandic occluding balloon catheter in the right renal pelvis. It is secured to an 18-Greenlandic Arreguin. The patient's placed in a prone position with care to airways and extremities. Dr. Cam of radiology performed percutaneous access to right lower pole calyx.I then dilate the tract to 30-Greenlandic. I introduced the rigid sheath into the col lecting system. Identify the stone. With ultrasound I break it up into smaller pieces and suction out. I remove the larger pieces with grasping forceps or stone basket. I look through the collecting system and do not see any remaining stone however there is a lot of edema due to the stone irritation and the stent irritation. For this reason a 20-Greenlandic reentry nephrostomy tube will be placed so that if I need to do a second look it can be done easily. It is done over the working wire and secured to the skin with 2-0 silk. The patient is awake and returned recovery in good condition. She tolerated the procedure well be discharged home upon recovery tomorrow. A postoperative computed tomography scan will be obtained to clarify whether a second look will be necessary. This has been discussed with the daughter. Blood loss is about 200 mL
--- NOTE | 2022-06-26 13:15 | FL ---
PROCEDURE: 1. Right percutaneous nephroureteral wire placement. DATE OF SERVICE: 06/26/2022 12:56 PM HISTORY: 77-year-old female with right renal calculi. RADIOLOGIST: Dr. Cam VICE PRINCIPAL: None ANESTHESIA: Local 2% lidocaine as well as sedation per Anesthesia. FLUORO TIME: 11.5 minutes. RADIATION DOSE:Ka,r = 323.6 mGy CONTRAST: 5 mL of Ultravist-300. TECHNIQUE: I verify that I have discussed the potential benefits, risks, and side effects regarding this treatme nt/procedure, the likelihood of the patient achieving his or her goals, and the potential problems th at might occur during recuperation. I verify that I have explained the alternatives to the patient including the risks, benefits, and side effects related to the alternatives and the risks related to not receiving the operation/procedure/treatment. The patient/surrogate decision maker has had an opp ortunity to ask and have questions answered. I have secured the patient's or the surrogate decision maker's consent prior to the operation/procedure/treatment. Patient was placed prone on the angiography table and the right flank prepped and draped in the usual sterile fashion. Appropriate pre-procedure antibiotics were given intravenously. A 21-gauge needle was used with sonographic assistance to access the right renal collecting system. Minimal amount of contrast was injected under fluoroscopic guidance, with automated exposure control, to confirm access into the renal collecting system. Through wire exchange technique two 0.035 inch guidewires were placed through the right renal collecting system down the ureter and positioned withi n the urinary bladder under fluoroscopic guidance. Patient tolerated the procedure well with no immediate postprocedural complications and care was [place] sferred to the urology service. Dr. Cam was present and actively participated throughout the procedure. FINDINGS: Closing Supervisor view of the abdomen demonstrates no contraindication for percutaneous drain placement. A hype rdensity is seen within the region of the right renal collecting system and likely represents renal c alculi. Upon injection of contrast for the antegrade nephrostograms in the right kidney demonstrate a filling defect within the renal collecting system. This demonstrates renal calculi. Contrast is seen descending down the ureter and draining into the urinary bladder. IMPRESSION: 1. Successful placement of 2 left percutaneous nephroureteral wires. Care of the patient is transfer red to the urology service for lithotripsy.
[2022-06-26] MEDS: HYDROmorphone 0.5 MG/0.5 ML SYRINGE IVP PRN ×3 (13:16→15:09)
[2022-06-26] MEDS: LACTATED RINGERS 1,000 ML IV SCH (19:51)
[2022-06-26] MEDS: DEXTROSE 5%-0.45% NACL 1,000 ML IV SCH ×2 (21:41→23:57)
[2022-06-26] MEDS: ONDANSETRON 4 MG/2 ML VIAL IVP PRN (22:19)
[2022-06-27] MEDS: ONDANSETRON 4 MG/2 ML VIAL IVP PRN (05:39)
[2022-06-27] MEDS ORDERED: METOCLOPRAMIDE 5 MG/ML 2 ML VIAL IVP STA (06:05)
[2022-06-27] MEDS: DEXTROSE 5%-0.45% NACL 1,000 ML IV SCH (07:28)
[2022-06-27] MEDS: LACTATED RINGERS 1,000 ML IV SCH (07:30)
[2022-06-27] MEDS: KETOROLAC 15 MG/ML 1 ML VIAL IVP PRN ×3 (08:15→23:37)
[2022-06-27] MEDS ORDERED: ONDANSETRON ODT 4 MG TAB PO STA (10:50)
[2022-06-27] MEDS: PANTOPRAZOLE 40 MG TABLET PO SCH ×2 (11:00→17:04)
[2022-06-27 11:54] LABS: Basophils % (A) 0 %; Eosinophils # (A) 0.1 k/uL (0-0.7); Eosinophils % (A) 1 %; HCT 36.4 % (34.0-46.0); HGB 11.4 gm/dL (11.4-16.0); Hypochromasia Slight; Lymphocytes # (A) 0.7 k/uL (1.0-4.8); Lymphocytes % (A) 5 %; MCH 29.8 pg (25.0-35.0); MCHC 31.3 g/dL (31.0-37.0); MCV 95.4 fL (80.0-100.0); Monocytes # (A) 0.9 k/uL (0-1.0); Monocytes % (A) 6 %; Neutrophils # (A) 12.3 k/uL (1.3-7.7); Neutrophils % (A) 87 %; Platelet Count 254 k/uL (150-450); RBC 3.82 m/uL (3.80-5.40); RDW 13.4 % (11.5-15.5); WBC 14.1 k/uL (3.8-10.6)
[2022-06-27 11:55] LABS: African American GFR (CKD) 55 (>60 ml/min/1.73 sqM); Anion Gap 6 mmol/L; Blood Urea Nitrogen 20 mg/dL (7-17); Calcium 8.3 mg/dL (8.4-10.2); Carbon Dioxide 27 mmol/L (22-30); Chloride 105 mmol/L (98-107); Glucose 134 mg/dL (74-99); Non-African American GFR(CKD) 47 (>60 ml/min/1.73 sqM); Potassium 4.5 mmol/L (3.5-5.1); Sodium 138 mmol/L (137-145)
--- NOTE | 2022-06-27 12:27 | CT ---
EXAMINATION TYPE: CT abdomen wo con DATE OF EXAM: 06/27/2022 COMPARISON: 05/29/2022 HISTORY: 77-year-old female Post PCNL RT. TECHNIQUE: Contiguous axial scanning of the abdomen without IV contrast. Coronal and sagittal reconst ructions performed. CT DLP: 980.1 mGycm Automated exposure control for dose reduction was used. FINDINGS: The heart appears mildly enlarged. Marked elevation right hemidiaphragm redemonstrated. New trace rig ht pleural effusion. Worsening aeration with opacification at the right base. Some strandy densities at the left base probably represent atelectasis. Riqxw-sg-neznqftf size hiatal hernia. Noncontrast appearance of the liver, gallbladder, adrenal glands, left kidney, spleen, and pancreas w ithin normal limits. On the right, a percutaneous introducer or dilator extends through the posterior 11th intercostal spa ce and through the posterior renal parenchyma to the level of the renal pelvis where 2 wires appear t o be present. A right ureteral stent courses down beyond the [id number]-muag. There is some punctate hi gh density within a lower pole calyceal system, axial image 35 and coronal image 50, likely punctate broken up stone material. The previous large calculus is no longer seen. Mild thickening and stranding along the right pararenal space likely some procedure related hemorrhag ic material. Small foci of air are also present. The previous hydronephrosis appears to have cleared. A tiny nonspecific 8 mm cortical lesion medial upper to mid pole likely a cyst. No dilated small bowel, free fluid, or free air. No mesenteric or retroperitoneal lymphadenopathy. Bones: Advanced hypertrophic facet arthropathy mid to lower lumbar spine. Disc bulging mid to lower l umbar spine. Ligamentum flavum thickening lower lumbar spine. IMPRESSION: 1. NEW TRACE RIGHT PLEURAL EFFUSION WITH WORSENING AERATION AT THE RIGHT BASE COULD REPRESENT A COMBI NATION OF ATELECTASIS AND/OR CONSOLIDATION. CLINICALLY CORRELATE. 2. CONTINUED MARKED ELEVATION OF THE RIGHT HEMIDIAPHRAGM. IF CONCERN FOR HEMIDIAPHRAGMATIC PARALYSIS, A FLUOROSCOPIC SNIFF TEST CAN BE PERFORMED. 3. A PERCUTANEOUS DEVICE EXTENDS THROUGH THE POSTERIOR RIGHT 11TH INTERCOSTAL SPACE THROUGH THE POSTE RIOR RIGHT RENAL PARENCHYMA INTO THE RENAL PELVIS. THERE APPEAR TO BE 2 WIRES HERE AND THEN A RIGHT U RETERAL STENT. 4. THE PREVIOUS LARGE STONE APPEARS TO HAVE RESOLVED. SOME VAGUE DENSITY IN A LOWER POLE CALYCEAL SYS TEM LIKELY REPRESENTS PUNCTATE BROKEN UP STONE MATERIAL. NOTE THAT THE PELVIS IS NOT IMAGED. 5. SOME PROCEDURE RELATED EDEMA, TRACE HEMORRHAGIC MATERIAL, AND FOCI OF AIR ALONG THE RIGHT PARARENA L SPACE.
[2022-06-27] MEDS: HYDROcodone/APAP 5-325MG 1 EACH TAB PO PRN ×2 (13:49→20:27)
--- NOTE | 2022-06-27 14:19 | P.PN ---
Subjective Progress Note Date: 06/27/22 Principal diagnosis: Right renal calculus This is a pleasant 76-year-old female with past medical history of hyperlipidemia, hypothyroidism, former nicotine dependence, and obesity. She underwent right ureteroscopy with laser lithotripsy with stent placement in 05/30/22. She was told at that time that she also had a 18 mm UPJ stone that will need to be dealt with with a percutaneous nephrostolithotomy and a secondary sitting. She came in 06/26/22 for an elective cystoscopy, removal double-J catheter right, placement of occluding balloon catheter right), percutaneous nephrostomy (), percutaneous nephrostolithotomy with ultrasound, placement of 20-Beninese reentry nephrostomy tube right with Dr. Hunt. Objective - Vital Signs Vital signs: Vital Signs Temp 97.6 F 06/27/22 08:00 Pulse 94 06/27/22 08:00 Resp 20 06/27/22 08:00 BP 113/76 06/27/22 08:00 Pulse Ox 90 L 06/27/22 08:00 FiO2 Intake & Output 06/26/22 06/27/22 06/27/22 18:59 06:59 18:59 Intake Total 1802.75 2000 Output Total 540 360 Balance 1262.75 1640 Weight 98.2 kg Intake: IV 1802.75 Intake, IV Titration 1200 Amount Dextrose 5%-0.45% NaCl 1, 1200 000 ml @ 100 mls/hr IV . Q10H DAVE Rx#:[id number] Oral 800 Output: Drainage 110 Right Lower Back 110 Urine 340 250 Uretheral (Arreguin) 250 Estimated Blood Loss 200 Other: Voiding Method Indwelling Catheter Indwelling Catheter # Voids 1 - Exam General: Well developed, well nourished. No acute distress. HEENT: Head is atraumatic, normocephalic. Lungs: Respirations even and nonlabored. On RA Abdomen/GI: Soft. Obese, no abdominal tenderness. : No suprapubic tenderness. Skin: Warm and dry Neurologic: Awake, alert and oriented times 3. CN II-XII grossly intact. No focal deficits. Psychiatric: Appropriate mood and affect. - Labs CBC & Chem 7: 06/27/22 11:11 06/27/22 11:11 Labs: Abnormal Lab Results - Last 24 Hours (Table) 06/27/22 06/27/22 Range/Units 11:11 11:11 WBC 14.1 H (3.8-10.6) k/uL Neutrophils # 12.3 H (1.3-7.7) k/uL Lymphocytes # 0.7 L (1.0-4.8) k/uL BUN 20 H (7-17) mg/dL Creatinine 1.12 H (0.52-1.04) mg/dL Glucose 134 H (74-99) mg/dL Calcium 8.3 L (8.4-10.2) mg/dL Assessment and Plan Assessment: The patient is lying in bed. She has only had clear liquids and complains of some mild nausea. Vitals are stable, she is on RA. Arreguin catheter in place and draining blood tinged urine. Right nephrostomy tube dressing has shadowing. There is dark bloody urine in the drainage bag. Notified by nursing staff that her IV infiltrated in her right hand with D5.45. RN stated they called pharmacy and was told to put an ice pack on it. Right hand is swollen and cool to the touch. +2 radial pulse. The RN also stated that the patient had coffee ground looking emesis, and her dressing around the nephrostomy tube was saturated. Upon evaluation, the nephrostomy tube flushed easily, however there was a clot in the drainage bag. The drainage bag was changed. The nurse was instructed to change the dresing around the nephrostomy tube. No active bleeding or hematoma noted. The patient had a abdominal CT this morning. Dr. Hunt discussed the results with her. 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 Maya Menard nurse practitioner acting as scribe for signing physician. 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
[2022-06-27] MEDS ORDERED: DEXTROSE 5%-0.45% NACL 1,000 ML IV SCH (15:00)
[2022-06-27] MEDS: METOCLOPRAMIDE 5 MG/ML 2 ML VIAL IVP PRN (20:29)
[2022-06-28] MEDS: HYDROcodone/APAP 5-325MG 1 EACH TAB PO PRN ×2 (00:56→12:33)
[2022-06-28 02:40] VITALS: RESP 16
[2022-06-28] MEDS: PANTOPRAZOLE 40 MG TABLET PO SCH (06:22)
[2022-06-28] MEDS: METOCLOPRAMIDE 5 MG/ML 2 ML VIAL IVP PRN (06:22)
[2022-06-28] MEDS: KETOROLAC 15 MG/ML 1 ML VIAL IVP PRN (06:22)
[2022-06-28] MEDS: LACTATED RINGERS 1,000 ML IV SCH (08:17)
[2022-06-28 08:20] VITALS: BP 118/65; PULSE 70; TEMP 98.4
--- NOTE | 2022-06-28 11:46 | P.DS ---
Providers Attending physician: Haris Hunt Primary care physician: Balaji Barillas - Discharge Diagnosis(es) (1) Right renal stone Current Visit: Yes Status: Acute Hospital Course: This is a 77-year-old female with history of right-sided renal stone underwent right-sided PCNL on June [address] Hunt. Patient was admitted to the hospital postoperatively. Patient was having intractable pain secondary to her surgery on postop day #1. Pain did improve on postoperative day #2. Had a CT abdomen and pelvis on postoperative day #1 that showed minimal residual stone. Her Arreguin catheter was removed on postoperative day #2 she was able to void. She was discharged home on postop day #2 with her nephrostomy tube. At time of discharge she was tolerating a diet, ambulating and pain was controlled Plan - Discharge Summary Discharge Rx Participant: Yes New Discharge Prescriptions: No Action Levothyroxine Sodium [Synthroid] 50 mcg PO QAM Atorvastatin Calcium 20 mg PO QAM Multivitamins, Thera [Multivitamin (formulary)] 1 tab PO DAILY Calcium Carbonate/Vitamin D3 [Calcium 600 mg-D3 10 Mcg (400 Iu)] 1 each PO DAILY Meclizine [Antivert] 25 mg PO BID PRN PRN Reason: Vertigo Cyanocobalamin [Vitamin B-12] 500 mcg PO DAILY L.acidoph,Paracasei, B.lactis [Probiotic] 1 each PO DAILY Discharge Medication List Atorvastatin Calcium 20 mg PO QAM 05/29/22 [History] Levothyroxine Sodium [Synthroid] 50 mcg PO QAM 05/29/22 [History] Meclizine [Antivert] 25 mg PO BID PRN 05/29/22 [History] Calcium Carbonate/Vitamin D3 [Calcium 600 mg-D3 10 Mcg (400 Iu)] 1 each PO DAILY 06/24/22 [History] Cyanocobalamin [Vitamin B-12] 500 mcg PO DAILY 06/24/22 [History] L.acidoph,Paracasei, B.lactis [Probiotic] 1 each PO DAILY 06/24/22 [History] Multivitamins, Thera [Multivitamin (formulary)] 1 tab PO DAILY 06/24/22 [History]
== END 2022-06-28 13:51 | disposition home or self-care (01) ==
LOC: OR 08:41 → 4SSUR 15:07 → OR 06-28 13:51
PROVIDERS: ATTEND Urology
DX: N20.2 Calculus of kidney with calculus of ureter (principal)
CPT/HCPCS: 86900; 86901; 80048; 85025; 86850; 82365; 50432; 74018; 74150; 52310; C1769 ×5; C2628; C1894; J1100; J2765 ×2; J2405 ×2; J1580; J0290; J1885 ×2; J1170; Q9967

== ENCOUNTER → 2023-01-01 | Outpatient (CLI) | payer MEDICARE ==
--- NOTE | 2023-01-02 07:22 | MM ---
Reason for Exam: Screening (asymptomatic). Last mammogram was performed 1 year(s) and 10 month(s) ago. Patient History: Menarche at age 12. First Full-Term at age 17. Right ovary removed at age 27. Hysterectomy at age 27. Postmenopausal. Patient used Hormonal Contraceptives for 15 years. 2000, Benign Core Biopsy on the left side. 2001, Benign Core Biopsy on the left side. 05/04/1998, Benign Cyst Aspiration on the left side. Risk Values: Celina 5 year model risk: 1.9%. NCI Lifetime model risk: 3.6%. Prior Study Comparison: 04/03/2014 Bilateral Screening Mammogram, [facility]. 01/07/2017 Bilateral Screening Mammogram, [facility]. 03/20/2021 Bilateral Screening Mammogram, [facility]. Tissue Density: The breast tissue is almost entirely fat. Findings: Analyzed By CAD. There is no suspicious group of microcalcifications or new suspicious mass in either breast. Overall Assessment: Negative, BI-RAD 1 Management: Screening Mammogram of both breasts in [address] [facility] will attempt to contact patient to return for supplemental views and ultrasound if indicated. Patient should continue monthly self-breast exams. A clinical breast exam by your physician is recommended on an annual basis. This exam should not preclude additional follow-up of suspicious palpable abnormalities. Note on Celina scores and lifetime risk: 1. A Celina score greater than 3% is considered moderate risk. If this is the case, consider specialist referral to assess eligibility for a risk reducing agent. 2. If overall lifetime risk for the development of breast cancer is 20% or higher, the patient may qualify for future screening with alternating mammogram and breast MRI. Electronically signed and approved by: Jair Jones DO
== END | disposition home or self-care (01) ==
LOC: RADMAMWWP 15:04
PROVIDERS: ATTEND Family Medicine
DX: Z12.31 Encounter for screening mammogram for malignant neoplasm of breast (principal); Z78.0 Asymptomatic menopausal state
CPT/HCPCS: 77063; 77067

== ENCOUNTER 2023-10-14 15:40 | Observation (INO) | payer MEDICARE ==
[2023-10-14] MEDS: KETOROLAC 15 MG/ML 1 ML VIAL IVP STA (16:13)
[2023-10-14] MEDS: LORazepam 2 MG/ML INJ IV STA (16:13)
[2023-10-14] MEDS: ASPIRIN 81 MG PO STA (16:15)
--- NOTE | 2023-10-14 16:35 | XR ---
EXAMINATION TYPE: XR chest 2V DATE OF EXAM: 10/14/2023 4:31 PM CLINICAL INDICATION:Female, 78 years old with history of difficulty breathing; [facility] COMPARISON: None TECHNIQUE: XR chest 2V Frontal and lateral views of the chest. FINDINGS: Lungs/Pleura: Elevated right diaphragm. There is no evidence of pleural effusion, focal consolidation , or pneumothorax. Pulmonary vascularity: Unremarkable. Heart/mediastinum: Cardiomediastinal silhouette is unremarkable. Musculoskeletal: No acute osseous pathology. Other findings: None IMPRESSION: 1. No acute cardiopulmonary disease/process. 2. Elevated right diaphragm, correlate for phrenic nerve injury.
[2023-10-14 16:36] LABS: Basophils % (A) 1 %; Eosinophils # (A) 0.2 k/uL (0-0.7); Eosinophils % (A) 2 %; HCT 43.6 % (34.0-46.0); HGB 14.3 gm/dL (11.4-16.0); Lymphocytes % (A) 37 %; MCH 30.2 pg (25.0-35.0); MCHC 32.8 g/dL (31.0-37.0); MCV 92.3 fL (80.0-100.0); Mean Platelet Volume 7.3; Monocytes # (A) 0.5 k/uL (0-1.0); Monocytes % (A) 6 %; Neutrophils # (A) 4.3 k/uL (1.3-7.7); Neutrophils % (A) 53 %; Platelet Count 314 k/uL (150-450); RBC 4.73 m/uL (3.80-5.40); RDW 12.5 % (11.5-15.5); WBC 8.1 k/uL (3.8-10.6)
[2023-10-14 16:42] LABS: ALT 23 U/L (4-34); AST 26 U/L (14-36); African American GFR (CKD) 73 (>60 ml/min/1.73 sqM); Albumin 4.3 g/dL (3.5-5.0); Alkaline Phosphatase 125 U/L (38-126); Anion Gap 12 mmol/L; Blood Urea Nitrogen 15 mg/dL (7-17); Calcium 10.2 mg/dL (8.4-10.2); Carbon Dioxide 20 mmol/L (22-30); Chloride 107 mmol/L (98-107); Glucose 131 mg/dL (74-99); Non-African American GFR(CKD) 64 (>60 ml/min/1.73 sqM); Sodium 139 mmol/L (137-145); Total Bilirubin 0.5 mg/dL (0.2-1.3); Total Protein 7.5 g/dL (6.3-8.2)
[2023-10-14 16:46] LABS: INR 0.9 (<1.2); Partial Thromboplastin Time 22.3 sec (22.0-30.0); Prothrombin Time 10.4 sec (10.0-12.5)
[2023-10-14 16:52] LABS: NT-Pro-B-Type Natriuretic Pept 177 pg/mL
--- NOTE | 2023-10-14 18:01 | CT ---
EXAMINATION TYPE: CT angio chest CT DLP: 570.1 mGycm, Automated exposure control for dose reduction was used. DATE OF EXAM: 10/14/2023 5:24 PM COMPARISON: Chest radiograph from same day. CT 06/27/2022 CLINICAL INDICATION:Female, 78 years old with history of Shortness of breath; Shortness of breath TECHNIQUE/CONTRAST: CTA scan of the thorax is performed with IV Contrast, patient injected with 70ml mL of Isovue 370, [place] P images are created and reviewed these are created on a separate workstation.. FINDINGS: Pulmonary Artery: There is no evidence for a filling defect within the pulmonary vasculature to sugge st acute pulmonary embolism. The pulmonary artery is of normal size. Lungs/Pleura: No evidence of focal consolidation, pleural effusion or pneumothorax. Elevated right di aphragm. Airway: Large airways are patent. Heart: There are is enlarged for size. Vasculature: No evidence of aortic aneurysm. Mediastinum: No gross evidence of adenopathy. Small hiatal hernia. Musculoskeletal: No acute osseous abnormalities Soft Tissues: Unremarkable. Lower neck: No significant findings. Upper Abdomen: No significant findings. IMPRESSION: 1. No evidence of pulmonary embolism. 2. Mild cardiomegaly. 3. Elevated right diaphragm. Correlate for phrenic nerve injury.
--- NOTE | 2023-10-14 19:04 | ED ---
SOB HPI - General Chief Complaint: Shortness of Breath Stated Complaint: Cheat Pain, Branden Time Seen by Provider: 10/14/23 15:57 Source: patient Mode of arrival: ambulatory Limitations: no limitations - History of Present Illness Initial Comments: This 78-year-old female presents with complaint of some shortness of breath, right arm pain, and right jaw pain. She states that it came on shortly prior to arrival. It was fairly sudden in onset. It occurred at rest. She denies any actual chest pain. She has occasional mild cough which is normal for her. She denies any increase in the cough and denies any fever. There is no leg pain or swelling. There is no history of DVT or PE. She denies any known cardiac history. She is never had a myocardial infarction or known coronary artery disease. She has never had a stress test or heart catheterization. She appears anxious on arrival. She denies any previous similar incidents. No other compla ints or modifying factors. - Related Data Home Medications Medication Instructions Recorded Confirmed L.acidoph,Paracasei, B.lactis 1 cap PO DAILY 06/24/22 10/14/23 [Probiotic] Multivitamins, Thera [Multivitamin 1 tab PO DAILY 06/24/22 10/14/23 (formulary)] Cholesterol Medication(Unknown) 1 tab PO DAILY 10/14/23 10/14/23 Synthroid(Unknown Dose) 1 tab PO DAILY 10/14/23 10/14/23 Allergies Allergy/AdvReac Type Severity Reaction Status Date / Time Latex, Natural Rubber Allergy Rash/Hives Verified 10/14/23 15:47 Sulfa (Sulfonamide Allergy Rash/Hives Verified 10/14/23 19:32 Antibiotics) Review of Systems ROS Statement: Those systems with pertinent positive or pertinent negative responses have been documented in the HPI. ROS Other: All systems not noted in ROS Statement are negative. Past Medical History Past Medical History: Hyperlipidemia, Thyroid Disorder History of Any Multi-Drug Resistant Organisms: None Reported Past Surgical History: Hysterectomy, Orthopedic Surgery Past Psychological History: No Psychological Hx Reported Smoking Status: Former smoker Past Alcohol Use History: None Reported Past Drug Use History: None Reported - Past Family History Mother History Unknown: Yes General Exam - General Exam Comments Initial Comments: GENERAL: The patient is well nourished and well hydrated. VITAL SIGNS: Heart rate, blood pressure, respiratory rate reviewed as recorded in nurse's notes. EYES: Pupils are round and reactive. Extraocular movements are intact. No conjunctival / lid redness or swelling. ENT: No external evidence of injury, swelling, or ecchymosis. Airway is patent. Throat is clear. NECK: Nontender. No swelling or evidence of injury. No subcutaneous emphysema. Trachea is midline. No thyroid mass. HEART: Regular rate and rhythm. Good peripheral pulses. LUNGS/CHEST: Breath sounds clear and equal bilaterally. No rales, rhonchi, or wheezes. No ecchymosis, subcutaneous emphysema, or tenderness. ABDOMEN: Abdomen soft without tenderness. No palpable masses or organomegaly. No peritoneal signs. No abdominal wall swelling or ecchymosis. EXTREMITIES: No extremity tenderness. Normal muscle tone and function. No thoracolumbar tenderness. NEUROLOGIC: Sensation is grossly intact. Cranial nerve exam reveals face is symmetrical, tongue is midline, speech is clear. SKIN: No abrasions or ecchymosis is noted. No induration or masses noted. PSYCHIATRIC: Alert and oriented. Appropriate behavior, appears somewhat anxious. Limitations: no limitations Course Vital Signs 10/14/23 10/14/23 10/14/23 15:46 16:00 18:52 Temperature 98.1 F Pulse Rate 71 71 Respiratory 18 18 18 Rate Blood Pressure 145/84 138/86 O2 Sat by Pulse 100 96 Oximetry Medical Decision Making - Medical Decision Making The patient was seen and examined. All diagnostics were reviewed. She is placed on a cafeteria monitor and no ectopy is identified. The EKG was done initially and shows a normal sinus rhythm at a rate of 93. There is no acute ST or T wave changes noted per my interpretation but there is significant artifact noted. There is normal intervals. The repeat EKG shows a normal sinus rhythm at a rate of 85. There is no acute ST or T wave changes identified per my interpretation. Intervals are all essentially within normal limits. There is less artifact. The patient does receive aspirin, Toradol, and Ativan intravenously. She is feeling remarkably improved on recheck. Laboratory is all essentially within normal limits except for slight elevation of the D-dimer. Chest x-ray does not show any acute process per my interpretation. CT angiogram of the chest also does not show any evidence of pulmonary embolism. Overall, the possibility of her symptomatology being related to acute coronary syndrome certainly is plausible. It is felt as though the patient would benefit from admission to the hospital to further rule out the possibility of acute coronary syndrome. She is agreeable. Case also was discussed with Dr. Vivi Sierra he is agreeable with admission. Was pt. sent in by a medical professional or institution (LISBETH Presley, VEHICLE CONTROLS ENGINEER, urgent care, hospital, or halfway...) When possible be specific @ -No Did you speak to anyone other than the patient for history (EMS, parent, family, police, friend...)? What history was obtained from this source @ -Patient's family is present and they do give additional history. Did you review nursing and triage notes (agree or disagree)? Why? @ -I reviewed and agree with nursing and triage notes Were old charts reviewed (outside hosp., previous admission, EMS record, old EKG, old radiological studies, urgent care reports/EKG's, halfway records)? Report findings @ -No old charts were reviewed Differential Diagnosis (chest pain, altered mental status, abdominal pain women, abdominal pain men, vaginal bleeding, weakness, fever, dyspnea, syncope, headache, dizziness, GI bleed, back pain, seizure, CVA, palpatations, mental health, musculoskeletal)? @ -Dyspnea, right arm pain, jaw pain, acute coronary syndrome, unstable angina, COPD, anxiety. EKG interpreted by me (3pts min.). @ -As above X-rays interpreted by me (1pt min.). @ -As above CT interpreted by me (1pt min.). @ -As above U/S interpreted by me (1pt. min.). @ -None done What testing was considered but not performed or refused? (CT, X-rays, U/S, labs)? Why? @ -None What meds were considered but not given or refused? Why? @ -None Did you discuss the management of the patient with other professionals (professionals i.e. LISBETH Presley, VEHICLE CONTROLS ENGINEER, lab, RT, psych nurse, social sciences instructor, dance master, teacher, control systems drafting officer, protective services case worker)? Give summary @ -Case is discussed with medicine and they are agreeable with admission. Was smoking cessation discussed for >3mins.? @ -No Was critical care preformed (if so, how long)? @ -No Were there social determinants of health that impacted care today? How? (Homelessness, low income, unemployed, alcoholism, drug addiction, transportation, low edu. Level, literacy, decrease access to med. care, long term, rehab)? @ -No Was there de-escalation of care discussed even if they declined (Discuss DNR or withdrawal of care, Hospice)? DNR status @ -No What co-morbidities impacted this encounter? (DM, HTN, Smoking, COPD, CAD, Cancer, CVA, ARF, Chemo, Hep., AIDS, mental health diagnosis, sleep apnea, morbid obesity)? @ -Obesity Was patient admitted / discharged? Hospital course, mention meds given and route, prescriptions, significant lab abnormalities, going to OR and other pertinent info. @ -Patient is admitted. Please see above. Undiagnosed new problem with uncertain prognosis? @ -No Drug Therapy requiring intensive monitoring for toxicity (Heparin, Nitro, I nsulin, Cardizem)? @ -No Were any procedures done? @ -No Diagnosis/symptom? @ -Dyspnea, right arm pain, possible acute coronary syndrome, anxiety. Acute, or Chronic, or Acute on Chronic? @ -Acute Uncomplicated (without systemic symptoms) or Complicated (systemic symptoms)? @ -Uncomplicated Side effects of treatment? @ -No Exacerbation, Progression, or Severe Exacerbation? @ -No Poses a threat to life or bodily function? How? (Chest pain, [place], [place], pneumonia, PE, COPD, DKA, ARF, appy, cholecystitis, CVA, Diverticulitis, Homicidal, Suicidal, threat to staff... and all critical care pts) @ -Possible acute coronary syndrome does potentially qualify as a threat to life. - Lab Data Result diagrams: 10/14/23 16:11 10/14/23 16:11 Lab Results 10/14/23 10/14/23 10/14/23 Range/Units 16:11 16:11 16:11 WBC 8.1 (3.8-10.6) k/uL RBC 4.73 (3.80-5.40) m/uL Hgb 14.3 (11.4-16.0) gm/dL Hct 43.6 (34.0-46.0) % MCV 92.3 (80.0-100.0) fL MCH 30.2 (25.0-35.0) pg MCHC 32.8 (31.0-37.0) g/dL RDW 12.5 (11.5-15.5) % Plt Count 314 (150-450) k/uL MPV 7.3 Neutrophils % 53 % Lymphocytes % 37 % Monocytes % 6 % Eosinophils % 2 % Basophils % 1 % Neutrophils # 4.3 (1.3-7.7) k/uL Lymphocytes # 3.0 (1.0-4.8) k/uL Monocytes # 0.5 (0-1.0) k/uL Eosinophils # 0.2 (0-0.7) k/uL Basophils # 0.0 (0-0.2) k/uL PT 10.4 (10.0-12.5) sec INR 0.9 (<1.2) APTT 22.3 (22.0-30.0) sec D-Dimer 0.62 H (<0.60) mg/L FEU Sodium 139 (137-145) mmol/L Potassium 4.0 (3.5-5.1) mmol/L Chloride 107 (98-107) mmol/L Carbon Dioxide 20 L (22-30) mmol/L Anion Gap 12 mmol/L BUN 15 (7-17) mg/dL Creatinine 0.88 (0.52-1.04) mg/dL Est GFR (CKD-EPI)AfAm 73 (>60 ml/min/1.73 sqM) Est GFR (CKD-EPI)NonAf 64 (>60 ml/min/1.73 sqM) Glucose 131 H (74-99) mg/dL Calcium 10.2 (8.4-10.2) mg/dL Total Bilirubin 0.5 (0.2-1.3) mg/dL AST 26 (14-36) U/L ALT 23 (4-34) U/L Alkaline Phosphatase 125 (38-126) U/L Troponin I (0.000-0.034) ng/mL NT-Pro-B Natriuret Pep 177 pg/mL Total Protein 7.5 (6.3-8.2) g/dL Albumin 4.3 (3.5-5.0) g/dL 10/14/23 10/14/23 Range/Units 16:11 18:45 WBC (3.8-10.6) k/uL RBC (3.80-5.40) m/uL Hgb (11.4-16.0) gm/dL Hct (34.0-46.0) % MCV (80.0-100.0) fL MCH (25.0-35.0) pg MCHC (31.0-37.0) g/dL RDW (11.5-15.5) % Plt Count (150-450) k/uL MPV Neutrophils % % Lymphocytes % % Monocytes % % Eosinophils % % Basophils % % Neutrophils # (1.3-7.7) k/uL Lymphocytes # (1.0-4.8) k/uL Monocytes # (0-1.0) k/uL Eosinophils # (0-0.7) k/uL Basophils # (0-0.2) k/uL PT (10.0-12.5) sec INR (<1.2) APTT (22.0-30.0) sec D-Dimer (<0.60) mg/L FEU Sodium (137-145) mmol/L Potassium (3.5-5.1) mmol/L Chloride (98-107) mmol/L Carbon Dioxide (22-30) mmol/L Anion Gap mmol/L BUN (7-17) mg/dL Creatinine (0.52-1.04) mg/dL Est GFR (CKD-EPI)AfAm (>60 ml/min/1.73 sqM) Est GFR (CKD-EPI)NonAf (>60 ml/min/1.73 sqM) Glucose (74-99) mg/dL Calcium (8.4-10.2) mg/dL Total Bilirubin (0.2-1.3) mg/dL AST (14-36) U/L ALT (4-34) U/L Alkaline Phosphatase (38-126) U/L Troponin I <0.012 <0.012 (0.000-0.034) ng/mL NT-Pro-B Natriuret Pep pg/mL Total Protein (6.3-8.2) g/dL Albumin (3.5-5.0) g/dL Disposition Clinical Impression: Dyspnea, Right arm pain, Jaw pain, Anxiety Disposition: ADMITTED IP TO THIS [facility] Condition: Good Is patient prescribed a controlled substance at d/c from ED?: No Time of Disposition: 19:03 Decision Date: 10/14/23 Decision Time: 19:03
[2023-10-14] MEDS ORDERED: NITROGLYCERIN SL TABS 0.4 MG TAB SUBLINGUAL PRN (19:07)
[2023-10-14] MEDS ORDERED: ALPRAZolam 0.5 MG TAB PO PRN (19:11)
[2023-10-14] MEDS: ATORVASTATIN 20 MG TAB PO SCH (20:43)
[2023-10-15] MEDS ORDERED: CAFFEINE CITRATE 60 MG/3 ML VIAL IV PRN (08:07)
[2023-10-15] MEDS ORDERED: AMINOPHYLLINE 500 MG/20 ML VIAL IV PRN (08:07)
[2023-10-15] MEDS ORDERED: REGADENOSON 0.4 MG/5 ML SYRINGE IV PRN (08:07)
[2023-10-15 08:49] LABS: LDL Cholesterol,Calculated 109.9 mg/dL (0.0-131.0)
[2023-10-15] MEDS ORDERED: ASPIRIN 325 MG TAB PO SCH (09:00)
[2023-10-15] MEDS ORDERED: SYNTHROID PO SCH (09:00)
[2023-10-15] MEDS: LACTOBACILLUS ACIDOPHILUS/PECT 1 EACH CAPSULE PO SCH (09:10)
[2023-10-15] MEDS: MULTIVITAMINS, THERA 1 EACH TAB PO SCH (09:10)
--- NOTE | 2023-10-15 11:23 | P.CRDCN ---
History of Present Illness Consult date: 10/15/23 History of present illness: HISTORY OF PRESENTING ILLNESS 78-year-old female with no significant cardiovascular history presented to the hospital because of shortness of breath. Patient reported that for last 6 7 months she has been experiencing exertional shortness of breath. She reports that she would be raking leaves or cleaning her house when she gets short of b reath and has to sit down. This is somewhat new in last 1 to 2 years. Yesterday patient was repairing her storm door when she got significantly short of breath and could not catch her breath and therefore she presented to the hospital. She did not report that she was having LH substernal chest pressure at that time or any lightheadedness dizziness. She did not encounter any palpitations during that. She did not have any significant coughing episode at that time. Patient reported that she has been having on and off cough lately though. No recent upper respiratory infections. Denies any reported history of smoking relation drug use marijuana use or alcohol use. ECG shows sinus rhythm with nonspecific T wave inversions in lead III and aVF. Labs shows hemoglobin 14, D-dimer 0.62, creatinine 0.8, LDL 109, triglycerides 267, BNP 177, troponin x 3 negative. CTA negative for any PE. Mild coronary calcification BP 128/70, heart rate 57 REVIEW OF SYSTEMS 14 point review of system is negative except what is mentioned above in HPI. PHYSICAL EXAMINATION Vital signs reviewed. Head: Normocephalic. Eyes: Sclerae nonicteric. Neck: Brisk carotid upstroke, no jugular venous distention. Lungs: Clear to auscultation. Heart: Regular rate and rhythm, S1-S2, no S3, no murmur or rub. Abdomen: Soft nontender, positive bowel sounds. Extremities: No edema, intact distal pulses. Neuro: Alert, oritented, no focal deficits. Detailed neuro exam was not performed. ASSESSMENT Acute respiratory distress, currently resolved Dyspnea on exertion ongoing for last 6-7 months Dyslipidemia Obesity Coronary calcification on chest CT PLAN Obtain an echocardiogram Obtain Lexiscan nuclear stress test Further recommendations to follow Consider pulmonology consult for respi distress evaluation and possible PFT Eduar Pineda MD, FACC, RPVI Thank you for allowing [facility] to participate in this patient's care. Feel free to reach out in case of any followup questions. Past Medical History Past Medical History: Hyperlipidemia, Thyroid Disorder Additional Past Medical History / Comment(s): kidney stones removed last year History of Any Multi-Drug Resistant Organisms: None Reported Past Surgical History: Hysterectomy, Orthopedic Surgery Additional Past Surgical History / Comment(s): x2 knee replacements Past Psychological History: No Psychological Hx Reported Smoking Status: Former smoker Past Alcohol Use History: None Reported Past Drug Use History: None Reported - Past Family History Mother History Unknown: Yes Medications and Allergies Home Medications Medication Instructions Recorded Confirmed Type L.acidoph,Paracasei, B.lactis 1 cap PO DAILY 06/24/22 10/14/23 History [Probiotic] Multivitamins, Thera [Multivitamin 1 tab PO DAILY 06/24/22 10/14/23 History (formulary)] Atorvastatin [Lipitor] 20 mg PO DAILY 10/15/23 10/15/23 History Levothyroxine Sodium [Synthroid] 50 mcg PO DAILY 10/15/23 10/15/23 History Allergies Allergy/AdvReac Type Severity Reaction Status Date / Time Latex, Natural Rubber Allergy Rash/Hives Verified 10/14/23 15:47 Sulfa (Sulfonamide Allergy Rash/Hives Verified 10/14/23 19:32 Antibiotics) Physical Exam Vitals: Vital Signs Temp Pulse Pulse Resp BP BP Pulse Ox 10/15/23 07:00 98.0 F 57 L 12 136/81 95 10/15/23 02:54 97.8 F 55 L 15 128/70 97 10/15/23 02:00 58 L 10/14/23 21:52 98.1 F 58 L 18 150/71 97 10/14/23 21:18 74 16 138/64 97 10/14/23 18:52 71 18 138/86 96 10/14/23 16:00 18 10/14/23 15:46 98.1 F 71 18 145/84 100 Intake and Output 10/14/23 10/15/23 10/15/23 22:59 06:59 14:59 Other: # Voids 1 2 Weight 90.718 kg Results 10/14/23 16:11 10/14/23 16:11 Cardiac Enzymes 10/14/23 10/14/23 10/14/23 Range/Units 16:11 16:11 18:45 AST 26 (14-36) U/L Troponin I <0.012 <0.012 (0.000-0.034) ng/mL 10/15/23 Range/Units 00:25 AST (14-36) U/L Troponin I <0.012 (0.000-0.034) ng/mL Coagulation 10/14/23 Range/Units 16:11 PT 10.4 (10.0-12.5) sec APTT 22.3 (22.0-30.0) sec Lipids 10/14/23 Range/Units 16:11 Triglycerides 267.00 H (0.00-149.00) mg/dL Cholesterol 210.00 H (0.00-200.00) mg/dL HDL Cholesterol 46.70 (40.00-60.00) mg/dL Cholesterol/HDL Ratio 4.50 Ratio CBC 10/14/23 Range/Units 16:11 WBC 8.1 (3.8-10.6) k/uL RBC 4.73 (3.80-5.40) m/uL Hgb 14.3 (11.4-16.0) gm/dL Hct 43.6 (34.0-46.0) % Plt Count 314 (150-450) k/uL Comprehensive Metabolic Panel 10/14/23 Range/Units 16:11 Sodium 139 (137-145) mmol/L Potassium 4.0 (3.5-5.1) mmol/L Chloride 107 (98-107) mmol/L Carbon Dioxide 20 L (22-30) mmol/L BUN 15 (7-17) mg/dL Creatinine 0.88 (0.52-1.04) mg/dL Glucose 131 H (74-99) mg/dL Calcium 10.2 (8.4-10.2) mg/dL AST 26 (14-36) U/L ALT 23 (4-34) U/L Alkaline Phosphatase 125 (38-126) U/L Total Protein 7.5 (6.3-8.2) g/dL Albumin 4.3 (3.5-5.0) g/dL Current Medications Generic Name Dose Route Start Last Admin Trade Name Freq PRN Reason Stop Dose Admin Alprazolam 0.5 mg 10/14/23 19:11 Alprazolam 0.5 Mg Tab PO Q12H PRN Anxiety Aminophylline 100 mg 10/15/23 08:07 Aminophylline 500 Mg/20 Ml Vial IV 10/15/23 12:07 ONCE PRN Patient Response Atorvastatin Calcium 20 mg 10/14/23 19:45 10/15/23 09:10 Atorvastatin 20 Mg Tab PO 20 mg DAILY DAVE Administration Caffeine Citrate 60 mg 10/15/23 08:07 Caffeine Citrate 60 Mg/3 Ml Vial IV 10/15/23 12:07 ONCE PRN Patient Response Enoxaparin Sodium 40 mg 10/15/23 09:00 Enoxaparin 40 Mg/0.4 Ml Syringe SQ DAILY DAVE Lactobacillus Acidophilus 1 each 10/15/23 09:00 10/15/23 09:10 Lactobacillus Acidophilus/Pect 1 Each Capsule PO 1 each DAILY DAVE Administration Levothyroxine Sodium 50 mcg 10/15/23 09:30 Levothyroxine 50 Mcg Tab PO DAILY@0630 DAVE Multivitamins 1 each 10/15/23 09:00 10/15/23 09:10 Multivitamins, Thera 1 Each Tab PO 1 each DAILY DAVE Administration Nitroglycerin 0.4 mg 10/14/23 19:07 Nitroglycerin Sl Tabs 0.4 Mg Tab SUBLINGUAL Q5M PRN Chest Pain Regadenoson 0.4 mg 10/15/23 08:07 Regadenoson 0.4 Mg/5 Ml Syringe IV 10/15/23 12:07 ONCE PRN Per Protocol Intake and Output 10/14/23 10/15/23 10/15/23 22:59 06:59 14:59 Other: # Voids 1 2 Weight 90.718 kg 10/14/23 16:11 10/14/23 16:11
--- NOTE | 2023-10-15 11:29 | CA ---
Lexiscan Nuclear Stress Test Report Name: Bernice Rae Exam Date: 10/15/2023 10:17 Exam Location: [place] Stress Ht (in): 66 Wt (lb): 215 BSA: 2.06 Ordering Phys: Eduar Pineda MD Referring Phys: Edwin Technologist: BABITA FELDER Age: 78 Gender: F : 1945 Procedure CPT: Indications: Reflex order-Stress test ICD-10 Codes: Patient History: SALLY, CHOL, FAMILY HX Medications: SEE CHART Meds past 24 hrs: Pretest Chest Pain: STRESS TEST Lexiscan Protocol Exercise Duration (min:sec): 01:[address] Depressions (mm): Angina Score: Walsh Score: Resting HR (bpm): 58 Peak HR (bpm): 93 Resting BP (mmHg): 150 / 72 Peak BP (mmHg): 177 / 54 MPHR: 142 Target HR: 121 % MPHR: 65 METS: 1.0 Total Dose: Peak Dose: Atropine: Double Product: 11293 BP Response: Stress Termination: END OF DOSE Stress Symptoms: DYSPNEA AND HEADACHE (RESOLVED) Stress Summary: ECG ANALYSIS Resting ECG: Stress ECG: CONCLUSIONS RESTING EKG: [Normal sinus rhythm, LAFB] , Patient recieved IV infusion of Lexiscan 0.4mg and at peak infusion STRESS EKG showed: [No significant ST-T wave changes diagnostic for ischemia by ST segment analysis] ARRYTHMIAS: [No ectopic rhythms or sustained arrythmias] CONCLUSION: 1. Normal hemodynamic and clinical response to Lexiscan infusion. 2. Non-ischemic EKG response to lexiscan infusion Please refer to the nuclear imaging portion of this stress test for complete interpretation of the study. Dr Eduar Pineda (Electronically Signed) Final Date: 15 October 2023 11:28
--- NOTE | 2023-10-15 12:17 | NM ---
EXAMINATION TYPE: NM stress lexiscan cardiolite DATE OF EXAM: 10/15/2023 COMPARISON: NONE CLINICAL INDICATION: Female, 78 years old with history of sob; TECHNIQUE: After the intravenous administration of 10.12 mCi Tc 99m Sestamibi - Cardiolite resting S PECT images acquired 45 minutes post injection. The patient received 0.4mg Lexiscan, 26.0 mCi Tc 99m Sestamibi - Stress images obtained [address] injection FINDINGS: Review of stress and rest SPECT images demonstrates no distinct perfusion abnormality. Gated analysi s shows normal wall motion with an estimated left ventricular ejection fraction of 62 %. IMPRESSION: No scintigraphic evidence for reversible ischemia.
[2023-10-15] MEDS: ENOXAPARIN 40 MG/0.4 ML SYRINGE SQ SCH (12:29)
[2023-10-15] MEDS: LEVOTHYROXINE 50 MCG TAB PO SCH (12:29)
[2023-10-15] MEDS: ACETAMINOPHEN TAB 325 MG TAB PO PRN (13:11)
--- NOTE | 2023-10-15 13:13 | CA ---
Transthoracic Echo Report Name: Bernice Rae Age: 78 Gender: F : 1945 Exam Date: 10/15/2023 11:08 Exam Location: [place] [facility] Ht (in): 66 Wt (lb): 200 Ordering Physician: Jair Teague DO Attending/Referring Phys: [id number], Zahida Waiter/Waitress Formal Julia Gregory, [id number] Procedure CPT: Indications: sob Cardiac Hx: Technical Quality: Good Contrast 1: Total Dose (mL): Contrast 2: Total Dose (mL): MEASUREMENTS (Male / Female) Normal Values 2D ECHO LV Diastolic Diameter PLAX 4.6 cm 4.2 - 5.9 / 3.9 - 5.3 cm LV Systolic Diameter PLAX 3.5 cm IVS Diastolic Thickness 1.4 cm 0.6 - 1.0 / 0.6 - 0.9 cm LVPW Diastolic Thickness 1.2 cm 0.6 - 1.0 / 0.6 - 0.9 cm LV Relative Wall Thickness 0.6 RV Internal Dim ED PLAX 3.2 cm LA Systolic Diameter LX 3.7 cm 3.0 - 4.0 / 2.7 - 3.8 cm LV Diastolic Volume MOD 4C 100.1 cm??? LV Systolic Volume MOD 4C 38.4 cm??? LV Ejection Fraction MOD 4C 61.6 % LV Cardiac Index MOD 4C 2040.3 cm???/min???m??? LV Diastolic Length 4C 7.9 cm LV Systolic Length 4C 5.9 cm LV Diastolic Volume MOD 2C 80.0 cm??? LV Systolic Volume MOD 2C 17.7 cm??? LV Ejection Fraction MOD 2C 77.8 % LV Cardiac Index MOD 2C 2056.5 cm???/min???m??? LV Diastolic Length 2C 8.0 cm LV Systolic Length 2C 6.0 cm LA Volume 59.8 cm??? 18 - 58 / 22 - 52 cm??? LA Volume Index 28.7 cm???/m??? 16 - 28 cm???/m??? M-MODE Aortic Root Diameter MM 3.4 cm DOPPLER AV Peak Velocity 143.9 cm/s AV Peak Gradient 8.3 mmHg MV Area PHT 3.2 cm??? Mitral E Point Velocity 83.1 cm/s Mitral A Point Velocity 109.5 cm/s Mitral E to A Ratio 0.8 MV Deceleration Time 237.1 ms TR Peak Velocity 186.1 cm/s TR Peak Gradient 13.8 mmHg Right Ventricular Systolic Press 19.9 mmHg FINDINGS Left Ventricle Left ventricular ejection fraction is estimated at 60-65 %. Left ventricular cavity size normal. Moderate LVH Right Ventricle Normal RV size and systolic function Right Atrium Normal right atrial size. Left Atrium Mildly increased left atrial volume. Mitral Valve Structurally normal mitral valve. Trace mitral regurgitation. Aortic Valve Trileaflet aortic valve. Aortic valve sclerosis. No aortic valve stenosis or regurgitation. Tricuspid Valve Structurally normal tricuspid valve. Mild tricuspid regurgitation. Pulmonic Valve Structurally normal pulmonic valve. Trace pulmonic regurgitation. Pericardium No pericardial effusion. Aorta Normal size aortic root and proximal ascending aorta. CONCLUSIONS Left ventricular ejection fraction is estimated at 60-65 %. Moderate LVH. No obvious regional wall motion abnormality Normal RV size and systolic function. RVSP <30 mmHg Mild LA dilatation No major valve pathology Previewed by: Dr Eduar Pineda (Electronically Signed) Final Date: 15 October 2023 13:12
--- NOTE | 2023-10-15 18:21 | P.CNPUL ---
History of Present Illness Consult date: 10/15/23 Reason for consult: dyspnea History of present illness: I am seeing this 78-year-old female patient regarding progressive exertional dyspnea has been developing for the past 6 to 7 months. On a few instances, the patient has also experienced chest pain along with shortness of breath along with left arm pain and jaw pain. Cardiac disease runs in her family extensively. No cough. No sputum production. No smoking. No history of asthma or emphysema. The patient came in for further evaluation. EKG showed no ST segment changes. Troponins were negative. The CT of the chest that was done showed a significant right hemidiaphragmatic elevation/paralysis and has been present since 2021. No earlier x-rays or CAT scans for comparison. Mild coronary artery calcification was also seen. Echocardiogram was within normal limits and the cardiac stress has been negative. The patient is currently on room air oxygen and the pulse ox is ranging between 95 to 97%. She does have orthopnea and she is having difficulty laying down flat that she sleeps on her right side. No history of head trauma. No history of neck trauma. No history of any significant motor vehicle accidents. No history of any intrathoracic malignancy. No surgeries on her neck or spine area. Her white cell count is at 8, hemoglobin 14.3 and a platelet count of 314. Normal coagulation profile. Normal electrolytes. Viral screen has been negative. LDL cholesterol is currently at 109. No recurrent pneumonias. No recent respiratory tract infections. Review of Systems Constitutional: Reports as per HPI Eyes: denies as per HPI, denies blurred vision, denies bulging eye, denies decreased vision, denies diplopia, denies discharge, denies dry eye, denies irritation, denies itching, denies pain, denies photophobia, denies loss of peripheral vision, denies loss of vision, denies tunnel vision/blind spots Ears: deny: decreased hearing, ear discharge, earache, tinnitus Ears, nose, mouth and throat: Reports as per HPI Breasts: absent: as per HPI, change in shape, gynecomastia, masses, nipple discharge, pain, skin changes, swelling Cardiovascular: Reports chest pain, Reports decreased exercise tolerance, Reports dyspnea on exertion Respiratory: Reports as per HPI, Reports dyspnea Gastrointestinal: Reports as per HPI Genitourinary: Reports as per HPI Menstruation: Reports as per HPI Musculoskeletal: Reports as per HPI Musculoskeletal: absent: ankle pain, ankle stiffness, ankle swelling Integumentary: Reports as per HPI Neurological: Reports as per HPI Psychiatric: Reports as per HPI Endocrine: Reports as per HPI Hematologic/Lymphatic: Reports as per HPI Allergic/Immunologic: Reports as per HPI Past Medical History Past Medical History: Hyperlipidemia, Thyroid Disorder Additional Past Medical History / Comment(s): kidney stones removed last year History of Any Multi-Drug Resistant Organisms: None Reported Past Surgical History: Hysterectomy, Orthopedic Surgery Additional Past Surgical History / Comment(s): x2 knee replacements Past Psychological History: No Psychological Hx Reported Smoking Status: Former smoker Past Alcohol Use History: None Reported Past Drug Use History: None Reported - Past Family History Mother History Unknown: Yes Medications and Allergies Home Medications Medication Instructions Recorded Confirmed Type L.acidoph,Paracasei, B.lactis 1 cap PO DAILY 06/24/22 10/14/23 History [Probiotic] Multivitamins, Thera [Multivitamin 1 tab PO DAILY 06/24/22 10/14/23 History (formulary)] Atorvastatin [Lipitor] 20 mg PO DAILY 10/15/23 10/15/23 History Levothyroxine Sodium [Synthroid] 50 mcg PO DAILY 10/15/23 10/15/23 History Allergies Allergy/AdvReac Type Severity Reaction Status Date / Time Latex, Natural Rubber Allergy Rash/Hives Verified 10/14/23 15:47 Sulfa (Sulfonamide Allergy Rash/Hives Verified 10/14/23 19:32 Antibiotics) Physical Exam Vitals: Vital Signs Temp Pulse Pulse Pulse Pulse Resp BP 10/15/23 15:26 68 80 70 10/15/23 14:42 98.4 F 74 18 10/15/23 07:00 98.0 F 57 L 12 10/15/23 02:54 97.8 F 55 L 15 10/15/23 02:00 58 L 10/14/23 21:52 98.1 F 58 L 18 10/14/23 21:18 74 16 138/64 10/14/23 18:52 71 18 138/86 BP BP BP Pulse Ox 10/15/23 15:26 144/85 140/77 145/81 10/15/23 14:42 177/70 99 10/15/23 07:00 136/81 95 10/15/23 02:54 128/70 97 10/15/23 02:00 10/14/23 21:52 150/71 97 10/14/23 21:18 97 10/14/23 18:52 96 Intake and Output 10/15/23 10/15/23 10/15/23 06:59 14:59 22:59 Intake Total 0 Balance 0 Intake: Oral 0 Other: # Voids 2 1 The patient appeared well nourished and normally developed. Vital signs as documented. Head exam is unremarkable. No scleral icterus or corneal arcus noted. Neck is without jugular venous distension, thyromegaly, or carotid bruits. Carotid upstrokes are brisk bilaterally. Lungs are clear to auscultation and percussion. There is diminished breath on the right lung base compared to the left. No dullness to percussion. Cardiac exam reveals the PMI to be normally sized and situated. Rhythm is regular. First and second heart sounds normal. No murmurs, rubs or gallops. Abdominal exam reveals normal bowel sounds, no masses, no organomegaly and no aortic enlargement. Extremities are nonedematous and both femoral and pedal pulses are normal. Examination of the skin revealed no evidence of significant rashes, suspicious appearing nevi or other concerning lesions. Neurologically, the patient is awake and alert and the patient does not have any focal neurological deficit. Cranial nerves are essentially intact. Results - Laboratory Findings CBC and BMP: 10/14/23 16:11 10/14/23 16:11 PT/INR, D-dimer PT 10.4 sec (10.0-12.5) 10/14/23 16:11 INR 0.9 (<1.2) 10/14/23 16:11 D-Dimer 0.62 mg/L FEU (<0.60) H 10/14/23 16:11 Abnormal lab findings: Abnormal Labs 10/14/23 10/14/23 10/14/23 16:11 16:11 16:11 D-Dimer 0.62 H Carbon Dioxide 20 L Glucose 131 H Triglycerides 267.00 H Cholesterol 210.00 H VLDL Cholesterol, Calc 53.40 H - Diagnostic Findings Chest x-ray: image reviewed CT scan - chest: image reviewed Assessment and Plan Plan: Subacute shortness of breath, essentially exertional, progressively getting worse over the past 6 to 7 months. Currently under investigation. 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 Could be related to cervical spine disease. This was present since 2021 and it was tiffany rly visualized on the CAT scan of the abdomen and pelvis that was done back then. No earlier x-rays for comparison as such the chronicity of the problem cannot be established. No mediastinal tumors. Chest pain, normal echocardiogram, normal stress test, normal troponins. Patient has strong family history for coronary artery disease Obesity with a BMI of 32.3 History of kidney stones Hyperlipidemia Hypothyroidism Plan I had a lengthy discussion with the patient and her daughter. Explained to her that the unilateral diaphragmatic paralysis could contribute to chronic exertion of this. Her shortness of breath should not be progressive specially that she had this problem back in 2021. A baseline pulmonary function test is to be done outpatient basis to assess the extent of lung function impairment and restriction related to this unilateral hemidiaphragmatic paralysis. As far as her symptoms of progressive exertional dyspnea, this needs to be further worked up. The cardiac workup as such is negative. Based on the history of arm pain and jaw pain along with some chest pain, I think it is reasonable to consider cardiac catheterization to completely rule out any cardiac contribution for chronic exertional dyspnea. Her unilateral diaphragmatic paralysis will be evaluated later stage on outpatient basis. She may benefit from plication of the diaphragm if there is significant impairment of her lung function. Encourage weight loss. Provide the patient sinus parameter. CT angiogram shows no evidence of any pulmonary embolism. No evidence of pneumonia. No evidence of any chronic obstructive lung disease. Case was discussed with cardiology.
[2023-10-15 20:35] VITALS: RESP 16
[2023-10-16 08:56] VITALS: BP 146/73; PULSE 67; TEMP 97.6
--- NOTE | 2023-10-16 10:15 | P.PN ---
Subjective Progress Note Date: 10/16/23 HISTORY OF PRESENTING ILLNESS 78-year-old female with no significant cardiovascular history presented to the hospital because of shortness of breath. Patient reported that for last 6 7 months she has been experiencing exertional shortness of breath. She reports that she would be raking leaves or cleaning her house when she gets short of breath and has to sit down. This is somewhat new in last 1 to 2 years. Yesterday patient was repairing her storm door when she got significantly short of breath and could not catch her breath and therefore she presented to the hospital. She did not report that she was having LH substernal chest pressure at that time or any lightheadedness dizziness. She did not encounter any palpitations during that. She did not have any significant coughing episode at that time. Patient reported that she has been having on and off cough lately though. No recent upper respiratory infections. Denies any reported history of smoking relation drug use marijuana use or alcohol use. ECG shows sinus rhythm with nonspecific T wave inversions in lead III and aVF. Labs shows hemoglobin 14, D-dimer 0.62, creatinine 0.8, LDL 109, triglycerides 267, BNP 177, troponin x 3 negative. CTA negative for any PE. Mild coronary calcification BP 128/70, heart rate 57 10/16/2023 Patient is seen and examined at bedside this a.m. PHYSICAL EXAMINATION Vital signs reviewed. Head: Normocephalic. Eyes: Sclerae nonicteric. Neck: Brisk carotid upstroke, no jugular venous distention. Lungs: Clear to auscultation. Heart: Regular rate and rhythm, S1-S2, no S3, no murmur or rub. Abdomen: Soft nontender, positive bowel sounds. Extremities: No edema, intact distal pulses. Neuro: Alert, oritented, no focal deficits. Detailed neuro exam was not performed. ASSESSMENT Acute respiratory distress, currently resolved Dyspnea on exertion ongoing for last 6-7 months Dyslipidemia Obesity Mild Coronary calcification on chest CT Right-sided hemidiaphragm Patient's echocardiogram Showed an EF of 60 to 65%, moderate LVH, concerns of LVOT obstruction, RVSP less than 30 mmHg, mild LA dilatation. Lexiscan stress did not show any evidence of reversible or fixed perfusion defect PLAN Add Lipitor 20 mg daily for coronary calcification. I spent a great amount of time with patient explaining her symptoms and understanding her presentation. Patient is very concerned about her symptoms of shortness of breath and right-sided arm pain after repairing her storm door. With negative cardiac testing we have ruled out any life-threatening causes at this time. I have recommended to follow-up on outpatient basis. She might have some component of bendopnea and possible diastolic heart failure. A good way to proceed would be to perform a treadmill stress test to evaluate her functional capacity on outpatient basis. He also has right-sided hemidiaphragm which might correspond to her mild resting shortness of breath. Objective - Vital Signs Vital signs: Vital Signs Temp 97.6 F 10/16/23 07:00 Pulse 67 10/16/23 07:00 Resp 16 10/16/23 07:00 BP 146/73 10/16/23 07:00 Pulse Ox 95 10/16/23 07:00 FiO2 Intake & Output 10/15/23 10/16/23 10/16/23 18:59 06:59 18:59 Intake Total 0 Balance 0 Intake: Oral 0 Other: # Voids 1 2 - Labs CBC & Chem 7: 10/14/23 16:11 10/14/23 16:11 Labs: Microbiology - Last 24 Hours (Table) 10/14/23 16:00 Blood Culture - Preliminary Blood
--- NOTE | 2023-10-16 14:08 | P.HPIM ---
History of Present Illness H&P Date: 10/15/23 Chief Complaint: Shortness of breath, nausea, radiating midsternal chest pre ssure History and Physical and Discharge Summary: This is a pleasant 78-year-old female with past medical history significant for vertigo, hyperlipidemia, hypothyroidism, former nicotine dependence-less than 1 pack/day x 2 years in her 20s, morbid obesity and multiple other medical issues presented to the ER with complaints of midsternal chest pressure radiating through to back, up to right jaw, further down right arm, exertional, accompanied by nausea x 2 days, increased shortness of breath.troponins negative x 3, in a patient with normal troponins, EKG reporting sinu, family history of CAD, echo and Lexiscan stress pending. Reports exertional shortness of breath over the last year, progressive over the last 6-months. Denies cough, congestion. 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 Yesterday her storm door burst open, while she was attempting to work on the door ,reaching both up and down, symptoms promptly occurred. Phoned her daughter; daughter reports her mom was very short of breath with conversing, could hardly get out 1 or 2 words. Attempted to lay down and rest with no relief x 1 hour, then proceeded to the ER. Denies syncope. Reports couple weeks prior while she was raking and bending up and down doing yard work, developed similar symptoms. Denies recent upper respiratory affections. also re ports a couple vertigo exacerbations in the last year, on prn Antivert. Chest x-ray reported no acute cardiopulmonary disease/process. Afebrile, normal WBC. Viral screening negative. hematology unremarkable. D-dimer elevated 0.62, CTA reported no embolus, elevated right diaphragm, -etiology unclear. Denies history of MVA , intrathoracic trauma .Electrolytes within normal limits, bicarb 20, BUN 15, creatinine 0.88. Glucose 131. Triglycerides 267, cholesterol 210, LDL 109, HDL 46.7. Evaluated by cardiology, echo and Lexiscan stress test ordered. Review of Systems ROS Statement: Those systems with pertinent positive or pertinent negative responses have been documented in the HPI. ROS Other: All systems not noted in ROS Statement are negative. Past Medical History Past Medical History: Hyperlipidemia, Thyroid Disorder Additional Past Medical History / Comment(s): kidney stones removed last year History of Any Multi-Drug Resistant Organisms: None Reported Past Surgical History: Hysterectomy, Orthopedic Surgery Additional Past Surgical History / Comment(s): x2 knee replacements Past Psychological History: No Psychological Hx Reported Smoking Status: Former smoker Past Alcohol Use History: None Reported Past Drug Use History: None Reported - Past Family History Mother History Unknown: Yes Medications and Allergies Home Medications Medication Instructions Recorded Confirmed Type L.acidoph,Paracasei, B.lactis 1 cap PO DAILY 06/24/22 10/14/23 History [Probiotic] Multivitamins, Thera [Multivitamin 1 tab PO DAILY 06/24/22 10/14/23 History (formulary)] Atorvastatin [Lipitor] 20 mg PO DAILY 10/15/23 10/15/23 History Levothyroxine Sodium [Synthroid] 50 mcg PO DAILY 10/15/23 10/15/23 History Allergies Allergy/AdvReac Type Severity Reaction Status Date / Time Latex, Natural Rubber Allergy Rash/Hives Verified 10/14/23 15:47 Sulfa (Sulfonamide Allergy Rash/Hives Verified 10/14/23 19:32 Antibiotics) Physical Exam Vitals: Vital Signs Temp Pulse Pulse Resp BP BP Pulse Ox 10/15/23 07:00 98.0 F 57 L 12 136/81 95 10/15/23 02:54 97.8 F 55 L 15 128/70 97 10/15/23 02:00 58 L 10/14/23 21:52 98.1 F 58 L 18 150/71 97 10/14/23 21:18 74 16 138/64 97 10/14/23 18:52 71 18 138/86 96 10/14/23 16:00 18 10/14/23 15:46 98.1 F 71 18 145/84 100 Intake and Output 10/14/23 10/15/23 10/15/23 22:59 06:59 14:59 Other: # Voids 1 2 Weight 90.718 kg PHYSICAL EXAM: VITAL SIGNS: [As above] GENERAL: Alert and oriented x 3, sitting up at bedside, no acute distress. No conversational dyspnea. HEENT: Normocephalic, conjunctivae normal. eyes normal. NECK: Supple, no JVD. No thyroid enlargement. No LNs CARDIOVASCULAR: S1, S2 regular. No murmur RESPIRATION: Unlabored, equal air entry, clear to auscultation . ABDOMEN: Soft, nondistended, nontender . No guarding. no masses palpable. No ascites, No hepatosplenomegaly.Bowel sounds heard. LEGS: No edema. no swelling NERVOUS SYSTEM: Cranial N 2-12 grossly normal. Moves all 4 limbs. No focal deficits. Strength and sensation grossly intact. Skin: Warm and dry, no rash Results CBC & Chem 7: 10/14/23 16:11 10/14/23 16:11 Labs: Abnormal Lab Results - Last 24 Hours (Table) 10/14/23 10/14/23 10/14/23 Range/Units 16:11 16:11 16:11 D-Dimer 0.62 H (<0.60) mg/L FEU Carbon Dioxide 20 L (22-30) mmol/L Glucose 131 H (74-99) mg/dL Triglycerides 267.00 H (0.00-149.00) mg/dL Cholesterol 210.00 H (0.00-200.00) mg/dL VLDL Cholesterol, Calc 53.40 H (5.00-40.00) mg/dL Thrombosis Risk Factor Assmnt - Choose All That Apply Any of the Below Risk Factors Present?: Yes Each Factor Represents 1 point: Obesity (BMI >25) Other Risk Factors: Yes Each Risk Factor Represents 3 Points: Age 75 years or older Other congenital or acquired thrombophilia - If yes, enter type in comment: No Thrombosis Risk Factor Assessment Total Risk Factor Score: 4 Thrombosis Risk Factor Assessment Level: Moderate Risk Assessment and Plan Assessment: Chest pain, negative troponins, in a patient with progressive exertional dyspnea, Lexiscan stress test pending Subacute exertional shortness of breath over the last year, progressing over the last 6 months Elevated right diaphragm, correlate for phrenic nerve injury- right hemidiaphragmatic paralysis, etiology unclear, trended radiology studies, present on available radiology studies since 2021 Morbid obesity, BMI 32 Hypothyroidism Hyperlipidemia Former nicotine dependence Vertigo History of kidney stones Plan: Continue on current medication regimen ,monitoring and symptomatic treatment. patient currently sitting up at bedside, conversing with daughter, no conversational dyspnea, maintaining O2 sats in the mid 90s on room air. Orthostatic vital signs ordered.Patient will be discharged home today in a stable condition with guarded prognosis pending orthostatic vital signs, final Lexiscan results ,DC recommendations and clearance as per cardiology and pulm onary. Further outpatient workup with pulmonary regarding right hemidiaphragmatic paralysis. Discharge Medication List L.acidoph,Paracasei, B.lactis [Probiotic] 1 cap PO DAILY 06/24/22 [History] Multivitamins, Thera [Multivitamin (formulary)] 1 tab PO DAILY 06/24/22 [His tory] Atorvastatin [Lipitor] 20 mg PO DAILY 10/15/23 [History] Levothyroxine Sodium [Synthroid] 50 mcg PO DAILY 10/15/23 [History] The impression and plan of care has been dictated as directed. : I performed a history and examination of this patient, discussed the same with the dictator. I agree with the dictator's note ,documented as a scribe. Any additional findings or plans will be noted.
== END 2023-10-16 10:27 | disposition home or self-care (01) ==
LOC: EC 15:40 → 6NMEDSUR 19:12
PROVIDERS: ADMIT Family Medicine; ATTEND Family Medicine
DX: R06.03 Acute respiratory distress (principal); M79.601 Pain in right arm; R68.84 Jaw pain; R07.9 Chest pain, unspecified; F41.9 Anxiety disorder, unspecified; E78.5 Hyperlipidemia, unspecified; E03.9 Hypothyroidism, unspecified; I25.10 Atherosclerotic heart disease of native coronary artery without angina pectoris; E66.01 Morbid (severe) obesity due to excess calories; Z68.32 Body mass index [BMI] 32.0-32.9, adult; Z87.442 Personal history of urinary calculi; Z87.891 Personal history of nicotine dependence; Z79.890 Hormone replacement therapy; Z79.899 Other long term (current) drug therapy; Z88.2 Allergy status to sulfonamides; Z91.040 Latex allergy status; Z82.49 Family history of ischemic heart disease and other diseases of the circulatory system
CPT/HCPCS: 96372; 96374; 96375; 99285; 36415; 93005; 93017; 93306; 85379; 83880; 80061; 80053; 84484 ×2; 85025; 85610; 85730; 87040; 87636; 71046; 71275; 78452; G0378 ×3; A9500; J2060; J1650; J2785; J1885; Q9967

== ENCOUNTER 2023-11-03 07:14 | Emergency (ER) | payer MEDICARE ==
[2023-11-03 07:43] VITALS: RESP 18; TEMP 97.5
--- NOTE | 2023-11-03 07:49 | ED ---
General Adult HPI - General Chief complaint: Urogenital Stated complaint: Abd/flank pain Time Seen by Provider: 11/03/23 07:16 Source: patient, family Mode of arrival: wheelchair Limitations: no limitations - History of Present Illness Initial comments: Dictation was produced using [employer] dictation software. please excuse any grammatical, word or spelling errors. Chief Complaint: 78-year-old female presents emergency department with right- sided flank pain History of Present Illness: Patient 78-year-old female she has past medical history of kidney stones. She states for the last 7 hours she is developed acute onset right-sided flank pain. She states that it feels like a kidney stone. States that the pain is to her right flank radiates down her right groin. States that the pain is waxing and waning colicky in nature. States that she has had kidney stones all that needed to be repaired surgically. The ROS documented in this emergency department record has been reviewed and confirmed by me. Those systems with pertinent positive or negative responses have been documented in the HPI. All other systems are other negative and/or noncontributory. - Related Data Home Medications Medication Instructions Recorded Confirmed L.acidoph,Paracasei, B.lactis 1 cap PO DAILY 06/24/22 10/14/23 [Probiotic] Multivitamins, Thera [Multivitamin 1 tab PO DAILY 06/24/22 10/14/23 (formulary)] Atorvastatin [Lipitor] 20 mg PO DAILY 10/15/23 10/15/23 Levothyroxine Sodium [Synthroid] 50 mcg PO DAILY 10/15/23 10/15/23 Previous Rx's Medication Instructions Recorded HYDROcodone/APAP 5-325MG [[place] 1 tab PO Q6HR PRN 3 Days #12 tab 11/03/23 5-325] Ketorolac [Toradol] 10 mg PO Q6HR PRN 3 Days #12 tab 11/03/23 Ondansetron Odt [Zofran Odt] 4 mg PO Q8HR PRN #12 tab 11/03/23 Allergies Allergy/AdvReac Type Severity Reaction Status Date / Time Latex, Natural Rubber Allergy Rash/Hives Verified 11/03/23 07:23 Sulfa (Sulfonamide Allergy Rash/Hives Verified 11/03/23 07:23 Antibiotics) Review of Systems ROS Statement: Those systems with pertinent positive or pertinent negative responses have been documented in the HPI. ROS Other: All systems not noted in ROS Statement are negative. Past Medical History Past Medical History: Hyperlipidemia, Thyroid Disorder Additional Past Medical History / Comment(s): kidney stones removed last year History of Any Multi-Drug Resistant Organisms: None Reported Past Surgical History: Hysterectomy, Orthopedic Surgery Additional Past Surgical History / Comment(s): x2 knee replacements Past Psychological History: No Psychological Hx Reported Smoking Status: Former smoker Past Alcohol Use History: None Reported Past Drug Use History: None Reported - Past Family History Mother History Unknown: Yes General Exam - General Exam Comments Initial Comments: PHYSICAL EXAM: General Impression: Alert and oriented x3, acute distress secondary to pain HEENT: Normocephalic atraumatic, extra-ocular movements intact, pupils equal and reactive to light bilaterally, mucous membranes moist. Cardiovascular: Heart regular rate and rhythm Chest: Able to complete full sentences, no retractions, no tachypnea Abdomen: abdomen soft, n mild palpatory tenderness to the right lower lateral abdomen, non-distended, no organomegaly Musculoskeletal: Pulses present and equal in all extremities, no peripheral edema Motor: no focal deficits noted Neurological: CN II-XII grossly intact, no focal motor or sensory deficits noted Skin: Intact with no visualized rashes Psych: Normal affect and mood Limitations: no limitations Course Vital Signs 11/03/23 07:19 Temperature 97.5 F L Pulse Rate 74 Respiratory 18 Rate Blood Pressure 160/85 O2 Sat by Pulse 97 Oximetry Medical Decision Making - Medical Decision Making Was pt. sent in by a medical professional or institution (, PA, [employer], urgent care, hospital, or [facility]...) When possible be specific @ -No Did you speak to anyone other than the patient for history (EMS, parent, family, police, friend...)? What history was obtained from this source @ -No Did you review nursing and triage notes (agree or disagree)? Why? @ -I reviewed and agree with nursing and triage notes Were old charts reviewed (outside hosp., previous admission, EMS record, old EKG, old radiological studies, urgent care reports/EKG's, [facility] records)? Report findings @ -No old charts were reviewed Differential Diagnosis (chest pain, altered mental status, abdominal pain women, abdominal pain men, vaginal bleeding, musculoskeletal, weakness, fever, dyspnea, syncope, headache, dizziness, GI bleed, back pain, seizure, CVA, palpatations, mental health)? @ -Differential Abdominal Pain Women: Appendicitis, Cholecystitis, diverticulosis, ischemic bowel, pancreatitis, hepatitis, UTI, gastroenteritis, AAA, incarcerated hernia, bowel obstruction, constipation, inflammatory bowel, hepatitis, peptic ulcer disease, splenic infarction, perforated viscus, vulvitis, ovarian torsion, PID, kidney stone, placenta abruption, this is not meant to be an all-inclusive list EKG interpreted by me (3pts min.). @ -None done X-rays interpreted by me (1pt min.). @ -None done CT interpreted by me (1pt min.). @ -CT scan of the abdomen pelvis shows 5.7 mm nephrolithiasis 3 cm from the UVJ. There does appear to be some hydronephrosis U/S interpreted by me (1pt. min.). @ -None done What testing was considered but not performed or refused? (CT, X-rays, U/S, labs)? Why? @ -None What meds were considered but not given or refused? Why? @ -None Did you discuss the management of the patient with other professionals (professionals i.e. , PA, [employer], lab, RT, psych nurse, social scientist, physician/allergy/immunology, teacher, textile technical officer, case worker)? Give summary @ -No Was smoking cessation discussed for >3mins.? @ -No Was critical care preformed (if so, how long)? @ -No Were there social determinants of health that impacted care today? How? (Homelessness, low income, unemployed, alcoholism, drug addiction, transportation, low edu. Level, literacy, decrease access to med. care, [facility], rehab)? @ -No Was there de-escalation of care discussed even if they declined (Discuss DNR or withdrawal of care, Hospice)? DNR status @ -No What co-morbidities impacted this encounter? (DM, HTN, Smoking, COPD, CAD, Cancer, CVA, ARF, Chemo, Hep., AIDS, mental health diagnosis, sleep apnea, morbid obesity)? @ -None Was patient admitted / discharged? Hospital course, mention meds given and route, prescriptions, significant lab abnormalities, going to OR and other pertinent info. @ -70-year-old female presents to the emergency department with symptomatic nephrolithiasis. Vital signs upon arrival are within acceptable limits. Laboratory evaluation obtained found to be within acceptable limits. No concern for UTI. Patient given IV fluids and symptomatic relief with improvement. Disposition options were discussed with patient they are agreeable for discharge show follow-up outpatient with urology. Patient given pain prescription. Undiagnosed new problem with uncertain prognosis? @ -No Drug Therapy requiring intensive monitoring for toxicity (Heparin, Nitro, Insulin, Cardizem)? @ -No Were any procedures done? @ -No Diagnosis/symptom? Acute, or Chronic, or Acute on Chronic? Uncomplicated (without systemic symptoms) or Complicated (systemic symptoms)? @ -Symptomatic nephrolithiasis Side effects of treatment? @ -No Exacerbation, Progression, or Severe Exacerbation? @ -No Poses a threat to life or bodily function? How? (Chest pain, [place], [place], pneumonia, PE, COPD, DKA, ARF, appy, cholecystitis, CVA, Diverticulitis, Homicidal, Suicidal, threat to staff... and all critical care pts) @ -No - Lab Data Result diagrams: 11/03/23 07:44 11/03/23 07:44 Lab Results 11/03/23 11/03/23 11/03/23 Range/Units 07:44 07:44 07:44 WBC 9.5 (3.8-10.6) k/uL RBC 4.71 (3.80-5.40) m/uL Hgb 13.8 (11.4-16.0) gm/dL Hct 43.3 (34.0-46.0) % MCV 91.9 (80.0-100.0) fL MCH 29.3 (25.0-35.0) pg MCHC 31.9 (31.0-37.0) g/dL RDW 12.5 (11.5-15.5) % Plt Count 361 (150-450) k/uL MPV 7.2 Neutrophils % 83 % Lymphocytes % 11 % Monocytes % 5 % Eosinophils % 0 % Basophils % 0 % Neutrophils # 7.9 H (1.3-7.7) k/uL Lymphocytes # 1.0 (1.0-4.8) k/uL Monocytes # 0.5 (0-1.0) k/uL Eosinophils # 0.0 (0-0.7) k/uL Basophils # 0.0 (0-0.2) k/uL Sodium 138 (137-145) mmol/L Potassium 4.3 (3.5-5.1) mmol/L Chloride 104 (98-107) mmol/L Carbon Dioxide 25 (22-30) mmol/L Anion Gap 9 mmol/L BUN 21 H (7-17) mg/dL Creatinine 0.94 (0.52-1.04) mg/dL Est GFR (CKD-EPI)AfAm 67 (>60 ml/min/1.73 sqM) Est GFR (CKD-EPI)NonAf 58 (>60 ml/min/1.73 sqM) Glucose 139 H (74-99) mg/dL Calcium 10.0 (8.4-10.2) mg/dL Urine Color Red Urine Appearance Cloudy H (Clear) Urine pH 5.5 (5.0-8.0) Ur Specific [place] 1.026 (1.001-1.035) Urine Protein 1+ H (Negative) Urine Glucose (UA) Negative (Negative) Urine Ketones Trace H (Negative) Urine Blood Large H (Negative) Urine Nitrite Negative (Negative) Urine Bilirubin Negative (Negative) Urine Urobilinogen <2.0 (<2.0) mg/dL Ur Leukocyte Esterase Small H (Negative) Urine RBC >182 H (0-5) /hpf Urine WBC 8 H (0-5) /hpf Ur Squamous Epith Cells 10 H (0-4) /hpf Calcium Oxalate Crystal Many H (None) /hpf Urine Bacteria Occasional H (None) /hpf Urine Mucus Occasional H (None) /hpf Disposition Clinical Impression: Kidney stone Disposition: HOME SELF-CARE Condition: Fair Instructions (If sedation given, give patient instructions): Kidney Stones (ED) Prescriptions: HYDROcodone/APAP 5-325MG [[place] 5-325] 1 tab PO Q6HR PRN 3 Days #12 tab PRN Reason: Severe Pain Ketorolac [Toradol] 10 mg PO Q6HR PRN 3 Days #12 tab PRN Reason: Pain Ondansetron Odt [Zofran Odt] 4 mg PO Q8HR PRN #12 tab PRN Reason: Nausea Is patient prescribed a controlled substance at d/c from ED?: Yes If prescribed controlled substance>3 days was MAPS reviewed?: Prescribed <3 Days Referrals: Haris Hunt MD [STAFF PHYSICIAN] - 1-2 days Time of Disposition: 10:17
[2023-11-03] MEDS: KETOROLAC 15 MG/ML 1 ML VIAL IVP STA (07:52)
[2023-11-03] MEDS: ONDANSETRON 4 MG/2 ML VIAL IVP STA (07:53)
[2023-11-03] MEDS: SODIUM CHLORIDE 0.9% 1,000 ML IV STA (07:56)
[2023-11-03 08:15] LABS: Basophils % (A) 0 %; Eosinophils % (A) 0 %; HCT 43.3 % (34.0-46.0); HGB 13.8 gm/dL (11.4-16.0); Lymphocytes % (A) 11 %; MCH 29.3 pg (25.0-35.0); MCHC 31.9 g/dL (31.0-37.0); MCV 91.9 fL (80.0-100.0); Mean Platelet Volume 7.2; Monocytes # (A) 0.5 k/uL (0-1.0); Monocytes % (A) 5 %; Neutrophils # (A) 7.9 k/uL (1.3-7.7); Neutrophils % (A) 83 %; Platelet Count 361 k/uL (150-450); RBC 4.71 m/uL (3.80-5.40); RDW 12.5 % (11.5-15.5); WBC 9.5 k/uL (3.8-10.6)
[2023-11-03 09:23] LABS: African American GFR (CKD) 67 (>60 ml/min/1.73 sqM); Anion Gap 9 mmol/L; Blood Urea Nitrogen 21 mg/dL (7-17); Carbon Dioxide 25 mmol/L (22-30); Chloride 104 mmol/L (98-107); Glucose 139 mg/dL (74-99); Non-African American GFR(CKD) 58 (>60 ml/min/1.73 sqM); Potassium 4.3 mmol/L (3.5-5.1); Sodium 138 mmol/L (137-145)
[2023-11-03 09:57] LABS: Appearance,Urine Cloudy (Clear); Bilirubin,Urine Negative (Negative); Blood,Urine Large (Negative); Color,Urine Red; Glucose,Urine (UA) Negative (Negative); Ketones,Urine Trace (Negative); Leukocyte Esterase,Urine Small (Negative); Nitrite,Urine Negative (Negative); PH, Urine 5.5 (5.0-8.0); Protein,Urine 1+ (Negative); Specific Gravity,Urine 1.026 (1.001-1.035); Urobilinogen,Urine <2.0 mg/dL (<2.0)
[2023-11-03 10:06] LABS: Bacteria,Urine Occasional /hpf; Calcium Oxalate Crystals,Urine Many /hpf; Mucus,Urine Occasional /hpf; RBC,Urine >182 /hpf (0-5); Squamous Epithelial Cell,Urine 10 /hpf (0-4); WBC,Urine 8 /hpf (0-5)
--- NOTE | 2023-11-03 10:07 | CT ---
EXAMINATION TYPE: CT abdomen pelvis wo con DATE OF EXAM: 11/03/2023 COMPARISON: 06/27/2022 HISTORY: Flank pain CT DLP: 979.7 mGycm Examination of the solid and hollow viscera is limited given the lack of contrast. Unenhanced CT of t he abdomen and pelvis performed. FINDINGS: LUNG BASES: No evidence for nodule. No evidence for infiltrate. Fixed hiatal hernia seen [id number] erate in size. LIVER/GB: The gallbladder is unremarkable. No space-occupying hepatic lesion. PANCREAS: No pancreatic mass identified. No inflammatory process seen. SPLEEN: No evidence for splenomegaly. No intrasplenic lesions seen. ADRENALS: No adrenal nodules identified. No evidence for thickening. KIDNEYS: No evidence for renal mass. [id number] right-sided hydroureteronephrosis secondary to a distal ureteral calculus measuring 5.7 mm which resides 3 cm from the UVJ. There is right renal amy ma and perinephric stranding. Superimposed infection is difficult to exclude. No additional calculi s een within either kidney. No distinct renal mass appreciated. BOWEL: Appendix has a normal appearance. No evidence of bowel obstruction. No inflammatory process. Lymph nodes: No evidence for adenopathy greater than 1 cm. Abdominal aorta: Atheromatous changes seen. No evidence for aneurysm. Genital organs: No significant abnormality. Other: No significant abnormality. IMPRESSION: [id number] right-sided hydroureteronephrosis secondary to a distal ureteral calculus measuring 5.7 mm which resides 3 cm from the UVJ. There is right renal edema and perinephric stranding. Superim posed infection is difficult to exclude.
[2023-11-03 11:08] VITALS: BP 155/75; PULSE 78
== END 2023-11-03 10:31 | disposition home or self-care (01) ==
LOC: EC 07:14
DX: N13.2 Hydronephrosis with renal and ureteral calculous obstruction (principal); Z88.2 Allergy status to sulfonamides; Z91.040 Latex allergy status; Z87.891 Personal history of nicotine dependence
CPT/HCPCS: 36415; 80048; 85025; 81001; 74176; 99284; 96374; 96375; 96361; J2405; J1885

== ENCOUNTER → 2023-11-30 | Outpatient (CLI) | payer MEDICARE ==
--- NOTE | 2023-12-25 17:02 | FL ---
NO CHARGE EXAM EXAMINATION TYPE: FL sniff test without CXR DATE OF EXAM: 11/30/2023 Comparison: None Clinical History: 78-year-old female J98.6 DISORDERS OF DIAPHRAGM TECHNIQUE: Real-time fluoroscopy during normal breathing, deep inspiration expiration, and sniffing m aneuver Total fluoroscopy time: 1 minute 14 seconds. Total images: 12. DAP 363.34 mGycm2. Findings: Asymmetric elevation right hemidiaphragm. On some of the images, there appears to be paradoxical move ment of the right hemidiaphragm. However, there was technical error and the study fell off the list a nd was not available for review until much later. We are unable to recall if there was truly paradoxi kenia movement. Impression: Asymmetric elevation right hemidiaphragm. Technical error and read delay. Unable to recall if there w as paradoxical movement during real-time fluoroscopy. Patient declined returning for repeat imaging a t this time.
== END | disposition home or self-care (01) ==
LOC: RADUSWWP 08:50
PROVIDERS: ATTEND Internal Medicine Critical Care Medicine
DX: J98.6 Disorders of diaphragm (principal)
CPT/HCPCS: 76000